=== PATIENT | male | born 1940 | race Caucasian/White ===

== ENCOUNTER 2023-10-19 11:54 | Inpatient (IN) | payer MEDICARE, OTHER, SELFPAY ==
[2023-10-19] VITALS (27 sets, daily range): BP systolic 133–187; BP diastolic 63–95; BMI 29.3
--- NOTE | 2023-10-19 06:33 | ED.GENMED ---
History of Present Illness
<Nancy Brooks MD, Resident - Last Filed: 10/19/23 08:07>
General
Chief Complaint: Abdominal Symptoms
Time Seen by Provider: 10/19/23 06:09
History of Present Illness
History of Present Illness:
The patient is a 83 year old male who presented to ER complaining from diarrhea. He reported that he has been complaining from flu-like symptoms since . He started to take benzonatate since then and has been still coughing. The patient
reported that he had diarrhea this morning suddenly around 04.30 am suddenly in his bed. He denies chest pain, abdominal pain and nausea. He endorses shortness of breath.
The patient denies contacting anyone with COVID.
If applicable-neuro sx onset
Date of onset of symptoms: 11/19/23
Past History
<Nancy Brooks MD, Resident - Last Filed: 10/19/23 08:07>
Past History
ED Past Medical History: HTN, Other (BPH ), Other (hemorrhoid) and Other (anemia due rectal bleeding in the past and was treated)
ED Past Surgical History: Tonsilectomy and Other (wisdom teeth )
Phy Exam
<Nancy Brooks MD, Resident - Last Filed: 10/19/23 08:07>
General Physical Exam
General Presentation: moderate distress
General age: appears stated age
General Skin: dry
General Habitus: normal
General Mental: alert
General Hydration: dry mucous membranes
Eye Exam
Eye Exam: EOMI
Cardiovascular Exam
Cardiovascular Exam: regular rate/rhythm, no edema and no JVD
Pulmonary Exam
Cough: non productive cough
Breath Sounds: Crackles: left lower and right lower
Gastrointestinal Exam
Gastrointestinal Exam: soft, non distended and tender
Palpation: left upper quadrant: Minimal tenderness (no rebound, no guarding )
Neurological Exam
Neurological Exam: alert, oriented x3, CN II-XII intact and no motor deficits
Course
<Nancy Brooks MD, Resident - Last Filed: 10/19/23 08:07>
Orders/Labs/Results
Orders:
Orders
10/19/23 06:30
0.9% Sodium Chloride 500 ml [Nss] 500 ml IV BOLUS
CR Chest - 2 Views Urgent
Comment:
Reason For Exam: cough
10/19/23 06:37
Electrocardiogram (*1) Urgent
Reason for Study: Shortness of Breath
EKG- Treatment ONCE
10/19/23 06:39
Basic Metabolic Panel Urgent
COVID-19 Antigen Urgent
Source: Nasal Swab
Complete Blood Count/With Diff Urgent
10/19/23 07:19
Ipratropium/Albuterol Sulfate [Duoneb] 3 ml .ROUTE .[facility]-MED ONE
10/19/23 07:23
Ipratropium/Albuterol Sulfate [Duoneb] 3 ml INH R NOW ONE
10/19/23 07:30
Azithromycin 500 mg/250 ml [Zithromax Infusion] 500 mg in 250 ml IV NOW
CefTRIAXone [Rocephin] 1,000 mg IV NOW STA
10/19/23 07:37
CT Chest Pe Study Urgent
Comment:
Reason For Exam: hypoxia, tachypnea
Abnormal Lab Results
10/19/23
06:39
MPV 10.5 H fL
(7.4-10.4)
Absolute Neuts (auto) 7.3 H 10^3/uL
(1.4-6.5)
Absolute Lymphs (auto) 1.1 L 10^3/uL
(1.2-3.4)
Absolute Monos (auto) 1.3 H 10^3/uL
(0.1-0.6)
Lymphocytes % 11.1 L %
(20.5-51.1)
Monocytes % 13.6 H %
(1.7-9.3)
Sodium 128 L mmol/L
(135-145)
Chloride 95 L mmol/L
(98-107)
Glucose 130 H mg/dl
(70-99)
10/19/23 06:39
10/19/23 06:39
Vital Signs
Initial and Last Documented VS:
Initial Vital Signs
Temp Pulse Resp BP Pulse Ox
37.2 C 75 20 161/70 98
10/19/23 05:34 10/19/23 05:34 10/19/23 05:34 10/19/23 05:34 10/19/23 05:34
Last Documented Vital Signs
Temp Pulse Resp BP Pulse Ox
37.2 C 71 21 142/70 96
10/19/23 05:34 10/19/23 09:30 10/19/23 09:30 10/19/23 09:15 10/19/23 09:30
<Ki Parker MD - Last Filed: 10/19/23 09:51>
Orders/Labs/Results
Orders:
Orders
10/19/23 06:30
0.9% Sodium Chloride 500 ml [Nss] 500 ml IV BOLUS
CR Chest - 2 Views Urgent
Comment:
Reason For Exam: cough
10/19/23 06:37
Electrocardiogram (*1) Urgent
Reason for Study: Shortness of Breath
EKG- Treatment ONCE
10/19/23 06:39
Basic Metabolic Panel Urgent
COVID-19 Antigen Urgent
Source: Nasal Swab
Complete Blood Count/With Diff Urgent
10/19/23 07:19
Ipratropium/Albuterol Sulfate [Duoneb] 3 ml .ROUTE .[facility]-MED ONE
10/19/23 07:23
Ipratropium/Albuterol Sulfate [Duoneb] 3 ml INH R NOW ONE
10/19/23 07:30
Azithromycin 500 mg/250 ml [Zithromax Infusion] 500 mg in 250 ml IV NOW
CefTRIAXone [Rocephin] 1,000 mg IV NOW STA
10/19/23 07:37
CT Chest Pe Study Urgent
Comment:
Reason For Exam: hypoxia, tachypnea
Abnormal Lab Results
10/19/23
06:39
MPV 10.5 H fL
(7.4-10.4)
Absolute Neuts (auto) 7.3 H 10^3/uL
(1.4-6.5)
Absolute Lymphs (auto) 1.1 L 10^3/uL
(1.2-3.4)
Absolute Monos (auto) 1.3 H 10^3/uL
(0.1-0.6)
Lymphocytes % 11.1 L %
(20.5-51.1)
Monocytes % 13.6 H %
(1.7-9.3)
Sodium 128 L mmol/L
(135-145)
Chloride 95 L mmol/L
(98-107)
Glucose 130 H mg/dl
(70-99)
10/19/23 06:39
10/19/23 06:39
Vital Signs
Initial and Last Documented VS:
Initial Vital Signs
Temp Pulse Resp BP Pulse Ox
37.2 C 75 20 161/70 98
10/19/23 05:34 10/19/23 05:34 10/19/23 05:34 10/19/23 05:34 10/19/23 05:34
Last Documented Vital Signs
Temp Pulse Resp BP Pulse Ox
37.2 C 71 21 142/70 96
10/19/23 05:34 10/19/23 09:30 10/19/23 09:30 10/19/23 09:15 10/19/23 09:30
<Ki Parker MD - Last Filed: 10/19/23 09:51>
*Radiology
Radiology exam reviewed: preliminary read by ED provider and radiology read reviewed
*Pulse Oximetry
Patient hypoxic: yes
*EKG
Interpreted by ED Provider?: Yes
Heart Rate: 72
Rate: normal
Rhythm: a-fib
[place]: normal axis
Interval: normal interval
QRS Pattern: normal QRS
Ischemia: other (Septal infarct age undetermined)
*Critical Care Note
Total Time (30-74mins, 75-104mins- exclusive of procedures): 33
comment:
Critical care statement: A total of 33 minutes of critical care time was provided for this patient. This includes management of unstable vital signs, evaluation of the patient at bedside, frequent reassessment, discussion with
consultants/hospitalist, and review of pertinent medical records. This time was separate from time utilized to perform any aforementioned documented procedures
Data Reviewed
Source: patient, records and spouse
<Nancy Brooks MD, Resident - Last Filed: 10/19/23 08:07>
Comment
Comment:
Pneumonia, heart failure, pulmonary embolism, inflammatory lung conditions,gastroenteritis, ,systemic infection?
ED Attending Note
<Nancy Brooks MD, Resident - Last Filed: 10/19/23 08:07>
-
Portions of this chart may have been created with voice recognition software.� Occasional wrong word or��sound alike� substitutions may have occurred due to the inherent limitations of voice recognition software.
<Ki Parker MD - Last Filed: 10/19/23 09:51>
ED Attending Note
Patient seen and examined by attending physician: Yes
ED Attending Note:
I have seen and evaluated the patient with a [id number] encounter. I have spoken to the resident and involved in the medical history, the physical exam, medical decision making.
Evaluation and management service: agree unless noted differently below.
Results interpretation: agree unless noted differently below.
Focused HPI: 83-year-old male with past medical history of hypertension and BPH who presents to the emergency department with his for evaluation of cough and shortness of breath. Patient reports that he has been dealing with a productive cough
for the past 3 days. He had been following with his PCP who was treating for viral infection; patient was being treated symptomatically with benzonatate and Mucinex. Over the weekend however patient has had increasing generalized weakness and
has noticed that he is not as 'sharp' as usual. This morning patient very weak could not get out of bed and had some incontinence of stool and went to the bathroom and was coughing and had an episode of vomiting. Brought to the emergency room for
assessment. Patient denies any chest pain. He has had fevers ranging from 100�101 degrees Fahrenheit per . No swelling or pain in the legs.
Physical exam: Awake alert oriented x 3. Hypoxic to 81% on room air currently on 6 L nasal cannula at 87 to 88%; he has tachypnea with respiratory rate in the mid 20s. He is mildly hypertensive. Heart rate 60s to 70s. He is afebrile here. He
has no cardiac rubs gallops or murmurs. Irregular rhythm. He has no edema in his extremities. Abdomen nontender. He has Rales most pronounced at the right lung base.
Medical Decision Makin-year-old male presents with cough and shortness of breath, increasing fatigue; today had some diarrhea and vomiting. Symptoms progressing over 3 days. On arrival his pulse ox was actually 98% on room air but had a
rather abrupt decrease during short time in the ER down to 81% on room air requiring 6 L nasal cannula to maintain a saturation of 87 to 88%; respiratory therapist contacted to place patient on high flow nasal cannula. He had a negative COVID in
triage. He had CBC and CMP in triage which showed no leukocytosis, CMP shows mild hyponatremia to 128 with a glucose of 130. EKG shows new onset A-fib heart rate in the 70s. Chest x-ray reviewed by me likely right perihilar pneumonia but given
hypoxia that seems to be out of proportion to findings on chest x-ray will send for a CTA of the chest to rule out PE/pulmonary infarct. Patient will require admission for acute respiratory failure with hypoxia pending initial workup. Will cover
with antibiotics for community-acquired pneumonia based on history and chest x-ray findings.
CTA negative for PE, positive for multifocal pneumonia which fits with clinical picture. Patient stable on high flow nasal cannula with acceptable oxygenation. Vitals have been stable. Covered for community-acquired pneumonia. Case discussed
with hospitalist for admission.
Discharge Plan
Departure
Patient Disposition: Admit
Date of Disposition: 10/19/23
Time of Disposition: 09:51
Admit to doctor: Juliette
Presentation/result/management discussed w/ accepting MD/DO: Hospitalist
Discharge Problem:
Acute hypoxemic respiratory failure, Pneumonia
Prescriptions:
No Action
benzonatate 200 mg Capsule
200 mg PO BID PRN (Reason: cough)
amlodipine 10 mg Tablet
10 mg PO DAILY
hydrochlorothiazide 25 mg Tablet
25 mg PO DAILY
Mucinex DM 30-600 mg Tablet Extended Release 12 Hr
1 tab PO Q12H PRN (Reason: cough)
multivitamin Capsule
1 cap PO DAILY
Referrals:
Raheem Lewis MD [Family Provider] -
Interventions
Interventions:
*Risk Screen - Suicide Last Done: 10/19/23 05:34
*General Assessment Last Done: 10/19/23 05:34
*Neglect/Abuse Screening Last Done: 10/19/23 05:34
ED- Fall Risk Assessment Last Done: 10/19/23 05:34
*ED COVID-19 Vaccine History Last Done: 10/19/23 05:34
RT-Lslbfb-Skjefqscdh Assessment Last Done: 10/19/23 07:15
ED- Pulmonary Assessment Last Done: 10/19/23 09:30
Discharge Date and Time
Print Language: CYMRO
[2023-10-19] MEDS: NSS 500 IV (06:44)
[2023-10-19 07:01] LABS: % Basophils 0.4 % (0-2); % Eosinophils 0.4 % (0-6); % Immature Granulocytes 0.4 % (0-0.5); % Lymphocytes 11.1 % (20.5-51.1); % Monocytes 13.6 % (1.7-9.3); % Neutrophils 74.1 % (42.2-75.2); Absolute Lymphocytes 1.1 10^3/uL (1.2-3.4); Absolute Monocytes 1.3 10^3/uL (0.1-0.6); Absolute Neutrophils 7.3 10^3/uL (1.4-6.5); Hematocrit 48.7 % (39.0-52.0); Hemoglobin 17.7 g/dL (13.0-18.0); Mean Corp Hgb Conc. 36.3 g/dL (33.0-37.0); Mean Corpuscular Volume 85.3 fL (80.0-94.0); Mean Platelet Volume 10.5 fL (7.4-10.4); Nucleated Red Blood Cells % 0 % (-); Platelet Count 187 10^3/uL (130-400); Red Blood Cell Count 5.71 10^6/uL (4.70-6.10); Red Cell Dist. Width 14.3 % (11.5-14.5); White Blood Cell Count 9.8 10^3/uL (4.8-10.8)
[2023-10-19 07:16] LABS: COVID-19 Antigen Negative (Negative)
[2023-10-19 07:21] LABS: Blood Urea Nitrogen 19 mg/dl (9-20); Calcium 9.5 mg/dl (8.4-10.2); Carbon Dioxide 22 mmol/L (22-30); Chloride 95 mmol/L (98-107); Estimated Creatinine Clearance 69 ml/min; Glucose 130 mg/dl (70-99); Sodium 128 mmol/L (135-145); eGFR > 60.00
[2023-10-19] MEDS: DUONEB 3 ML INH (07:24)
--- NOTE | 2023-10-19 07:30 | EDRN ---
Received patient on stretcher. Patient with c/o nausea upon return to room from X-ray. Patient with audible rattling sound. Respirations are tachypneic and labored. Pulse ox on room air 81-83%. Placed on O2 6LNC. notified. Placed on
monitor which showed Afib. Patient denies h/o Afib. Patient receiving Duoneb treatment. Lungs with scattered crackles throughout bilaterally.
[2023-10-19] MEDS: ROCEPHIN 1000 MG IV (07:53)
[2023-10-19] MEDS: ZITHROMAX INFUSION 250 IV (08:05)
[2023-10-19] MEDS: NORVASC 10 MG PO (12:24)
[2023-10-19] MEDS: ORETIC 25 MG PO (12:25)
--- NOTE | 2023-10-19 12:46 | HPS.HSE ---
Addendum entered and electronically signed by Keagan Bright MD 10/19/23 14:12:
I saw and examined the patient.
The [employer] or PA's note was reviewed and I agree with the note.
Comment: 83-year-old male with past medical history of hypertension, BPH now presents for fever, cough, diarrhea. Patient had possible viral URI as diagnosed by outside physician, cough nonproductive. Patient symptoms became worse with diarrhea
this morning, productive yellow mucus expectoration, not associated shortness of breath. Noted to have temperature of 102.5 Fahrenheit. Noted to be hypoxic to 82% on room air, placed on 15 L with appropriate response. Otherwise hypertensive,
respiratory rate 24, pulse 74, afebrile here. Notable labs include sodium 128, SARS-CoV-[address] imaging with evidence of left lower lobe consolidation, groundglass opacities, indicative of multifocal pneumonia. Also notable nodular
consolidation that we will need follow-up.
Plan�wean O2 as tolerated, incentive spirometer, Acapella, ceftriaxone, azithromycin, follow sputum cultures, Legionella, strep pneumo antigen, mycoplasma. Also noted to have atrial fibrillation, started on Eliquis and consult cardiology.
Hyponatremia possible secondary to possible SIADH in setting of pneumonia versus hypovolemia. Hold hydrochlorothiazide, continue fluids, monitor sodium level. Can continue amlodipine as hypertensive.. Can stop amlodipine if blood pressures trend
down.
Original Note:
Family Physician
-
Family Physician: Raheem Lewis
Chief Complaint
-
Fever, Cough and Diarrhea
History of Present Illness
Patient is an 83 y/o male past medical history of hypertension and BPH who presents with fever, cough and diarrhea. Patient reports he started feeling well about 3-4 days ago. He notes cough that was initially non-productive, but is now productive
of yellow mucus. He admits to associated shortness of breath. He reports associated fever as high as 102.5 F. Last night developed significant diarrhea which prompted him to come to the emergency department for evaluation. Upon arrival he was
found to be hypoxic with pulse ox of 82% and he was placed on 15L of supplemental oxygen.
Medical History
Past Medical History
Past Medical History: Reports Other
Additional Past Medical History:
Essential Hypertension
BPH
Past Surgical History: Reports None
Social History
Tobacco: Non-smoker
Alcohol: Occasional (One beer with dinner most nights)
Family History
Family History: Not pertinent
Allergies / Home Medications
Allergies reflects when Allergies were last updated in [employer].
Home Medications with original date entered in [employer]
Allergy/Medication List:
Allergies
Allergy/AdvReac Type Severity Reaction Status Date / Time
codeine Allergy Unknown Verified 10/19/23 05:34
Sulfa (Sulfonamide Allergy Unknown Verified 10/19/23 05:34
Antibiotics)
Home Medications
Homocysteine 1 tab PO DAILY 10/19/23
Estuardo Sporebiotic 2 tab PO DAILY 10/19/23
Pro [place]-D 2 tab PO DAILY 10/19/23
amlodipine 10 mg tablet 10 mg PO DAILY 10/19/23
benzonatate 200 mg capsule 200 mg PO BIDPRN PRN cough 10/19/23
dextromethorphan-guaifenesin 30 mg-600 mg tablet extended [id number] hr (Mucinex DM) 1 tab PO Q12H PRN cough 10/19/23
hydrochlorothiazide 25 mg tablet 25 mg PO DAILY 10/19/23
omeprazole 20 mg capsule,delayed release 20 mg PO DAILYPRN PRN stomach issues 10/19/23
tadalafil 10 mg tablet 10 mg PO DAILY 10/19/23
vitamin D3-vitamin K2 1 tab PO DAILY 10/19/23
Review of Systems
-
A 12 point ROS was completed and negative except as noted: Yes
Constitutional: Reports Fever
Respiratory: Reports Cough and Trouble Breathing
Cardiac: Denies Chest Pain or Palpitations
Abdomen/GI: Reports Nausea and Diarrhea; Denies Abdominal Pain
Physical Exam
Vital Signs
Vital Signs
Temp Pulse Resp BP Pulse Ox
98.9 F 73 18 158/95 94
10/19/23 05:34 10/19/23 12:25 10/19/23 11:45 10/19/23 12:25 10/19/23 11:45
Physical Exam
General: Comfortable and Conversant
HEENT: Anicteric, Moist mucous membranes and Oxygen
Respiratory: Rales (Left middle and lower regions), Non Labored Respirations and Decreased Breath Sounds (Right base)
Cardiac: S1/S2 and Irregular Rhythm; No Tachycardia
GI: Soft and Non Tender
Rectal: Deferred by Provider
Musculoskeletal: No Clubbing, No Cyanosis and No Edema
Skin: Warm and Dry
Neuro: Awake, Alert, Oriented and Nonfocal/grossly intact
Psych: Calm
Laboratory Results
-
10/19/23 06:39
10/19/23 06:39
Laboratory Results
Total Bilirubin Cancelled 10/19/23 06:39
AST Cancelled 10/19/23 06:39
ALT Cancelled 10/19/23 06:39
Alkaline Phosphatase Cancelled 10/19/23 06:39
Chest X-Ray:
Left greater than right patchy bibasilar airspace opacities, suspicious for infectious etiology.
Chest CT:
No evidence of pulmonary embolism.
Left lower lobe consolidation with surrounding groundglass opacities. There is are additional ground glass opacities within the right lower lobe. Findings are consistent with multifocal pneumonia. There is bilateral hilar and mediastinal
lymphadenopathy which may be reactive.
There is a 1.9 x 1.5 cm nodular consolidation within the posterior right lower lobe with surrounding groundglass opacities. Findings may be related to multifocal infection although malignancy cannot be excluded. Recommend follow-up CT to ensure
resolution.
ECG:
Atrial Fibrillation at 72 bpm
Data Reviewed
-
Diagnostic Radiology: Report Reviewed by me
CT Scan: Report Reviewed by me
Lab Data: Labs Reviewed by me
Impression/Plan
-
Acute Hypoxic Respiratory Failure secondary to Multi-Focal Pneumonia
-Continue supplemental oxygen
-Continue ceftriaxone and azithromycin
-Check sputum culture, legionella and strep antigen
Atrial Fibrillation, new diagnosis - Rate is currently controlled
-Consult Cardiology
-Start Eliquis for anticoagulation
Hyponatremia
-Hold HCTZ
-Recheck sodium in AM
Essential Hypertension
-Continue amlodipine
BPH
-Continue tadalafil
DVT proph: Eliquis
Code Status: Full Code
--- NOTE | 2023-10-19 13:18 | EDRN ---
Patient taken to room 3349 on stretcher on monitor with O2 15L NC in place.
--- NOTE | 2023-10-19 14:00 | PTCARENOTE ---
Patient received from the ER. Patient was pulled over to room bed. DEMETRIO JAIN. No complaints of pain at this time. Lab work ordered and collected would could be obtained at this time. Patient currently having loose stool, will attempt to obtain a
sample. Admission done, at bedside. Oriented to room. Call mahoney in reach.
[2023-10-19 14:15] LABS: Lactic Acid 2.6 mmol/L (0.7-2.0)
[2023-10-19 14:16] LABS: Magnesium 1.6 mg/dl (1.6-2.3)
[2023-10-19] MEDS: LR 1000 IV (14:34)
[2023-10-19] MEDS: MAGNESIUM SULFATE 100 IV (15:50)
[2023-10-19] MEDS: ELIQUIS 5 MG PO (19:45)
[2023-10-19] MEDS: TESSALON PERLES 200 MG PO (19:45)
[2023-10-19 22:10] LABS: Lactic Acid 1.8 mmol/L (0.7-2.0)
[2023-10-20] VITALS (16 sets, daily range): BP systolic 124–175; BP diastolic 67–88; PULSE 70–81; O2SAT 98
--- NOTE | 2023-10-20 02:20 | PTCARENOTE ---
assumed care of patient, pt is AAOx3- able to make needs known. pt still with diarrhea, using BSC, pt has been up and down and few times using BSC. no complaints of pain. on 10L MF- 94%. BP's have been trending on higher side, notified covering
[employer]ING, awaiting orders. pt with productive cough, admits to poor appetite. some wheezes noted to auscultation. a-fib on the monitor. pt due for first dose of eliquis. verbalized 'I am not sure how much i believe of all this' in regards to new
diagnosis of a-fib and starting on eliquis. education provided to patient. care ongoing.
[2023-10-20 05:04] LABS: Hemoglobin 17.2 g/dL (13.0-18.0); Mean Corp Hgb Conc. 36.6 g/dL (33.0-37.0); Mean Corpuscular Hgb 31.1 pg (27.0-31.0); Mean Platelet Volume 11.2 fL (7.4-10.4); Platelet Count 219 10^3/uL (130-400); Red Blood Cell Count 5.53 10^6/uL (4.70-6.10); White Blood Cell Count 8.2 10^3/uL (4.8-10.8)
[2023-10-20 05:26] LABS: ALT (SGPT) 51 U/L (0-50); AST (SGOT) 53 U/L (17-59); Albumin 3.6 g/dl (3.5-5.0); Alkaline Phosphatase 65 U/L (38-126); Blood Urea Nitrogen 17 mg/dl (9-20); Calcium 9.6 mg/dl (8.4-10.2); Carbon Dioxide 24 mmol/L (22-30); Chloride 95 mmol/L (98-107); Estimated Creatinine Clearance 77 ml/min; Glucose 128 mg/dl (70-99); Potassium 3.7 mmol/L (3.5-5.1); Sodium 127 mmol/L (135-145); Total Bilirubin 1.4 mg/dl (0.2-1.3); Total Protein 6.2 g/dl (6.3-8.2); eGFR > 60.00
[2023-10-20] MEDS: TESSALON PERLES 200 MG PO (05:49)
[2023-10-20] MEDS: ROCEPHIN 1000 MG IV (08:23)
[2023-10-20] MEDS: NORVASC 10 MG PO (08:24)
[2023-10-20] MEDS: STERILE WATER FOR INJECTION 10 ML IV (08:24)
[2023-10-20] MEDS: TESSALON PERLES PO (08:24)
[2023-10-20] MEDS: ELIQUIS 5 MG PO ×2 (08:24→19:36)
[2023-10-20] MEDS: ZITHROMAX INFUSION 250 IV (08:25)
[2023-10-20] MEDS: FLUSH (NSS) 2 FLUSH IV (08:25)
--- NOTE | 2023-10-20 09:04 | W.PN.HOSP.TC ---
Today's Communication/Plan
-
Wean oxygen
fluid restriction
Cardiology consult
Assessment / Plan
Assessment / Plan
Gen-AAOx3, NAD
HEENT-NC, AT, anicteric, clear oral mm
Neck-supple
CV-reg, no M, +S1/S2
Lungs-clear B/L
Abd-soft, NT, ND
Ext-no edema
Musculoskeletal-no cyanosis, clubbing
Skin-warm and dry
Neuro-grossly non-focal
Psych-calm, cooperative
Acute hypoxic respiratory failure -due to multifocal pneumonia. Oxygenation improving, now on 6 L. Wean down as able.
Multifocal community-acquired pneumonia -unclear if atypical versus typical bacterial pneumonia. CT chest shows left lower lobe consolidation with surrounding groundglass glass opacities, additional groundglass opacities in the right lower lobe.
Bilateral hilar and mediastinal lymphadenopathy. 1.9 x 1.5 cm nodular consolidation within the posterior right lower lobe with surrounding ground glass opacities.
Continue current antibiotics. Urinary antigens negative. Mycoplasma serology pending. Will need outpatient pulmonary follow-up after discharge.
Continue Acapella, incentive spirometry.
Atrial fibrillation -new diagnosis. Started on Eliquis. Cardiology consulted.
Hyponatremia -suspect ADH related to pneumonia. HCTZ discontinued. Fluid restriction. Monitor sodium. Spoke with patient about permanently stopping HCTZ on discharge. Check TSH, serum osmolarity, urine studies.
Essential hypertension
BPH
Obesity due to excess calories
Full code
Anticipated Discharge: 24 - 48 hours
Subjective/Interval History
-
Date of Service: October 20, 2023
Patient seen and examined. Denies shortness of breath. Still with loose stools.
Objective Data
-
Labs:
Laboratory Results
10/20/23
04:51
WBC 8.2
Hgb 17.2
Hct 47.0
Plt Count 219
Sodium 127 L
Potassium 3.7
Chloride 95 L
Carbon Dioxide 24
BUN 17
Creatinine 0.9
Glucose 128 H
Calcium 9.6
Total Bilirubin 1.4 H
AST 53
ALT 51 H
Alkaline Phosphatase 65
Vital Signs:
Vital Signs
Temp Pulse Resp BP Pulse Ox
98.4 F 70 19 157/81 92
10/20/23 07:00 10/20/23 06:00 10/20/23 06:00 10/20/23 06:00 10/20/23 06:00
I&O
10/19/23 10/20/23 10/21/23
06:59 06:59 06:59
Output Total 100 / 100
Balance -100 / -100
Review of Systems
-
History Source: Patient
All other systems: Reviewed and negative
--- NOTE | 2023-10-20 09:06 | CON.CAR ---
Addendum entered and electronically signed by Octavio Pagan MD 10/20/23 12:44:
I personally performed a history and physical exam of the patient and discussed management with the resident. I reviewed the resident's note and agree with the documented findings and plan of care HPI/CC.
General: Well developed, well nourished in NAD.
Neck: Supple, no JVD, HJR, carotids +2 B/L, no bruits bilaterally.
Heart: Non displaced PMI, Irreg, no murmurs, No S3, S4, no rubs.
Lungs: Crackles at the right base
Abdomen: Normal bowel sounds, soft, non-tender, non-distended.
Extremities: No clubbing, cyanosis or edema bilaterally.
Neuro: Grossly nonfocal, awake, alert and oriented x3.
Nimesh has a history of hypertension. He presented with fever cough and diarrhea. He was diagnosed with pneumonia. He is also found to be in A-fib and cardiology was consulted. He feels better but remains on 6 L of oxygen. Of note A-fib has been
rate controlled. He has been started on Eliquis
Duration of a atrial fibrillation is unclear. He notes that he had an ECG about 6 months ago that was okay. Rate is controlled off of medications. Will discontinue Norvasc and add Toprol. Eliquis has already been added. We could consider
eventual RAMIRO/cardioversion or cardioversion alone as an outpatient after 4 weeks of anticoagulation. He remains hypoxic. Will check proBNP for possible CHF. Check echocardiogram
Original Note:
Consultation
Consultation Request
Date/Time Consultation Requested: 10/20/2023
Date/Time Consultation Performed: 10/20/2023
Requesting Provider: Temitope Cavazos
Performing Provider:
Reason for Consultation: Dr. Pagan
Medical History
-
Chief Complaint: New onset A-fib
History of Present Illness:
This is a 83-year-old male patient with PMH hypertension that presented to the ED with fever, productive cough and diarrhea. He was diagnosed by an outside physician with possible viral URI and was given 15L O2 due to being hypoxemic at 82% on room
air on admission. He is currently afebrile and on 6L of O2 with 92% oxygen saturation. He is also on IV antibiotics for multifocal pneumonia. He states that he had an EKG done at his PCP's office but was told it was 'okay and nothing to worry
about'. He denies any chest pain, SOB, sweating, dizziness.
Past Medical History
Past Medical History: HTN and Other (BPH)
Past Surgical History: None
Social History
Tobacco: Non-Smoker
Alcohol: None (1 beer most nights with dinner)
Family History
Family History: Reviewed & Not Pertinent
Allergies / Home Medications
Allergy/AdvReac Type Severity Reaction Status Date / Time
codeine Allergy Unknown Verified 10/19/23 05:34
Sulfa (Sulfonamide Allergy Unknown Verified 10/19/23 05:34
Antibiotics)
�Medication �Instructions �Recorded �Confirmed �Type
Homocysteine 1 tab PO DAILY 10/19/23 10/19/23 History
Estuardo Sporebiotic 2 tab PO DAILY 10/19/23 10/19/23 History
Pro [place] 2 tab PO DAILY 10/19/23 10/19/23 History
amlodipine 10 mg tablet 10 mg PO DAILY 10/19/23 10/19/23 History
benzonatate 200 mg capsule 200 mg PO BIDPRN PRN cough 10/19/23 10/19/23 History
dextromethorphan-guaifenesin 30 1 tab PO Q12H PRN cough 10/19/23 10/19/23 History
mg-600 mg tablet extended
[id number] hr (Mucinex DM)
hydrochlorothiazide 25 mg tablet 25 mg PO DAILY 10/19/23 10/19/23 History
omeprazole 20 mg capsule,delayed 20 mg PO DAILYPRN PRN stomach 10/19/23 10/19/23 History
release issues
tadalafil 10 mg tablet 10 mg PO DAILY 10/19/23 10/19/23 History
vitamin D3-vitamin K2 1 tab PO DAILY 10/19/23 10/19/23 History
Review of Systems
-
Constitutional: No Symptoms
Cardiac: No Symptoms
Abdomen/GI: Diarrhea
Physical Exam
Vital Signs
Temp Pulse Resp BP Pulse Ox
98.4 F 70 19 157/81 92
10/20/23 07:00 10/20/23 06:00 10/20/23 06:00 10/20/23 06:00 10/20/23 06:00
Lab Results
10/20/23 04:51
10/20/23 04:51
Physical Exam
General: No Apparent Distress
HEENT: Moist Mucous Membranes
Respiratory: Clear
Cardiac: S1/S2 and Regular Rhythm; Negative Murmur
GI: Soft, Non Tender and Non Distended
Musculoskeletal: No Edema
Skin: Warm
Neuro: Awake, Alert and Oriented
Psych: Calm
Impression / Plan
-
Impression: This is a 83-year-old male patient with PMH hypertension that presented to the ED with fever, productive cough and diarrhea. New onset A-fib with EKG showing atrial fibrillation noted on 10/19/23. Asymptomatic. Eliquis was initiated and
cardiology consulted.
Assessment:
New onset A-fib
Acute hypoxemic respiratory failure secondary to multifocal pneumonia
Hyponatremia
BPH
Hypertension
Plan:
� EKG 10/19/2023: Atrial fibrillation
� Eliquis initiated on 10/18, [id number] score 3, continue anticoagulation
� Echo ordered
- Depending on echo, may change to Metoprolol from Amlodipine
- BNP ordered
� Continue HTN meds
[2023-10-20] MEDS: FLUSH (NSS) IV (10:44)
[2023-10-20] MEDS: LR 1000 IV (11:53)
[2023-10-20] MEDS: NON-FORMULARY ITEM 10 MG PO (11:53)
[2023-10-20 12:48] LABS: Osmolality Serum 267 mOsm/kg (275-300)
[2023-10-20 12:57] LABS: Direct Bilirubin 0.3 mg/dl (0.0-0.4)
[2023-10-20 13:29] LABS: TSH 3.56 uIU/ml (0.47-4.68)
[2023-10-20] MEDS: TOPROL XL 25 MG PO (14:08)
[2023-10-20 15:04] LABS: Urine Sodium 12 mmol/L (30-90)
--- NOTE | 2023-10-20 15:13 | CM ---
Patient with Dx Acute hypoxic respiratory failure, pneumonia. O2 6L. Receiving IVF, IV Abx. PT Eval; recommend home PT vs no needs. OT Eval; likely no needs.
Met with patient who resides with his in a 2 story house with first floor bedroom/bath.
The patient has been independent in ADLs and ambulation.
The patient has no DME, prior VN or SNF.
PCP - Raheem Lewis
Pharmacy - [facility]
Offered VN for SN/PT and patient declined saying he will not need that at home.
Plan watch for home O2 needs.
Plan home.
[2023-10-20 17:45] LABS: Osmolality Urine 311 mOsm/kg (300-900)
--- NOTE | 2023-10-20 18:19 | PTCARENOTE ---
Weaning o2 currently on RAIR maintaining sao2 93%. Occasional cough, sputum specimen sent. Pt self using IS/ Flutter. Remains in AF, rates 60-90s. BP 150s/80s. AFIB packet provided. 1 episode of nausea / small amt emesis today - resolved on
own. 3 small amts of loose stool- relayed to Dr. Case. Urine specimen sent as well. IVF infusing. Limited diet today appetite fair- only had a little yogurt/ trying some soup for dinner. Tolerating fluids.
--- NOTE | 2023-10-20 20:05 | PTCARENOTE ---
Received pt OOB to the chair. Pt AAOx3, denies pain. SpO2 93% on RA. Afib on the monitor, controlled rate of 85. Remainder of assessment as documented. PM hygiene performed by pt. Pt updated on POC for the night, no questions at this time, call mahoney
within reach, pt resting comfortably watching the news.
[2023-10-21] VITALS (11 sets, daily range): BP systolic 123–149; BP diastolic 69–101
[2023-10-21 05:45] LABS: Blood Urea Nitrogen 15 mg/dl (9-20); Carbon Dioxide 26 mmol/L (22-30); Chloride 95 mmol/L (98-107); Estimated Creatinine Clearance 87 ml/min; Glucose 121 mg/dl (70-99); Potassium 3.8 mmol/L (3.5-5.1); Sodium 128 mmol/L (135-145); eGFR > 60.00
[2023-10-21 05:50] LABS: NT-proBNP 689 pg/ml
[2023-10-21 05:55] LABS: Calcium 9.8 mg/dl (8.4-10.2)
[2023-10-21] MEDS: ROCEPHIN 1000 MG IV (07:59)
[2023-10-21] MEDS: STERILE WATER FOR INJECTION 10 ML IV (07:59)
[2023-10-21] MEDS: ZITHROMAX INFUSION 250 IV (07:59)
[2023-10-21] MEDS: LR IV (08:00)
[2023-10-21] MEDS: TOPROL XL 25 MG PO (08:00)
[2023-10-21] MEDS: FLUSH (NSS) IV ×2 (08:01→08:45)
[2023-10-21] MEDS: ELIQUIS 5 MG PO (08:01)
[2023-10-21] MEDS: NON-FORMULARY ITEM 10 MG PO (08:02)
--- NOTE | 2023-10-21 08:05 | W.PN.HOSP.TC ---
Addendum entered and electronically signed by Kev Case DO 10/21/23 14:23:
Oxygen saturation on room air normal with ambulation. Medically stable for discharge.
I spoke with patient's on the phone regarding importance of following up with pulmonary after discharge especially in light of his lung nodule noted on CT scan. Need to rule out malignancy.
I also asked Dr. Madrigal from the pulmonary group to follow-up with patient for appointment in the near future.
Original Note:
Today's Communication/Plan
-
Ambulatory pulse ox on room air
Discharge
Assessment / Plan
Assessment / Plan
Gen-AAOx3, NAD
HEENT-NC, AT, anicteric, clear oral mm
Neck-supple
CV-reg, no M, +S1/S2
Lungs-clear B/L
Abd-soft, NT, ND
Ext-no edema
Musculoskeletal-no cyanosis, clubbing
Skin-warm and dry
Neuro-grossly non-focal
Psych-calm, cooperative
Acute hypoxic respiratory failure -due to multifocal pneumonia. Oxygenation improved, has been on room air since last night. Check ambulatory pulse ox on room air.
Multifocal community-acquired pneumonia -unclear if atypical versus typical bacterial pneumonia. CT chest shows left lower lobe consolidation with surrounding groundglass glass opacities, additional groundglass opacities in the right lower lobe.
Bilateral hilar and mediastinal lymphadenopathy. 1.9 x 1.5 cm nodular consolidation within the posterior right lower lobe with surrounding ground glass opacities.
Continue current antibiotics. Urinary antigens negative. Mycoplasma serology pending. Will need outpatient pulmonary follow-up after discharge, discussed with patient. He does have a home in [place] and spends several months a year in [place].
We discussed potential pathogens located in that region. Given clinical improvement on antimicrobial therapy will hold off on further testing.
Continue Acapella, incentive spirometry.
Atrial fibrillation -new diagnosis. Continue Eliquis, Toprol-XL. Echocardiogram shows LVEF 55 to 60%, no regional wall motion abnormalities. Mild MR. Mild aortic stenosis. Mild TR. BNP 689.
Follow-up with cardiology after discharge.
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 HCTZ discontinued. Fluid restriction. Monitor sodium. Spoke with patient about permanently stopping HCTZ on discharge. TSH normal.
Patient will need a BMP checked at the end of the week, results to his primary care doctor.
Essential hypertension -stable.
BPH
Obesity due to excess calories
Full code
Dispo -anticipate discharge home this afternoon. Outpatient follow-up with his PCP, cardiology, pulmonary.
32 minutes spent in discharge process.
Anticipated Discharge: Today
Subjective/Interval History
-
Date of Service: October 21, 2023
Patient seen and examined. Overall feeling better. Still with a cough. Denies shortness of breath.
Objective Data
-
Labs:
Laboratory Results
10/21/23
05:04
Sodium 128 L
Potassium 3.8
Chloride 95 L
Carbon Dioxide 26
BUN 15
Creatinine 0.8
Glucose 121 H
Calcium 9.8
Vital Signs:
Vital Signs
Temp Pulse Resp BP Pulse Ox
98.3 F 62 18 126/69 94
10/21/23 03:01 10/21/23 06:00 10/21/23 06:00 10/21/23 06:26 10/21/23 04:00
I&O
10/20/23 10/21/23 10/22/23
06:59 06:59 06:59
Intake Total 2034
Output Total 100 / 100 1075 / 1075
Balance -100 / -100 960 / 960
Review of Systems
-
History Source: Patient
All other systems: Reviewed and negative
--- NOTE | 2023-10-21 08:18 | W.DS.TRANS ---
DC Summary - Topstitcher Lockstitch
-
Discharge Instructions:
Discharge Diagnosis/Procedures Community-acquired pneumonia, atrial
fibrillation, hyponatremia
Diet Restrict fluids to 48 oz,Low Fat,Low Cholesterol
Activity As tolerated
Driving Restrictions As prior to admission
Bathing Restrictions None
Blood Work BMP on October 23
Instructions:
Stand-Alone Forms:
Changes to Home Medications: Yes
Discharge Medications:
DC Medications w/original date entered in [facility]
benzonatate 200 mg capsule 200 mg PO BIDPRN PRN cough 10/19/23
dextromethorphan-guaifenesin 30 mg-600 mg tablet extended [id number] hr (Mucinex DM) 1 tab PO Q12H PRN cough 10/19/23
omeprazole 20 mg capsule,delayed release 20 mg PO DAILYPRN PRN stomach issues 10/19/23
tadalafil 10 mg tablet 10 mg PO DAILY Urinary Issue 10/19/23
apixaban 5 mg tablet (Eliquis) 5 mg PO BID #60 tabs 10/21/23
azithromycin 500 mg tablet 500 mg PO DAILY #3 tabs 10/21/23
cefpodoxime 200 mg tablet 200 mg PO BID #6 tabs 10/21/23
metoprolol succinate 25 mg tablet,extended release 24 hr 25 mg PO DAILY #30 tabs 10/21/23
Home Medication Changes
Stop amlodipine
Stop hydrochlorothiazide
Pending Results: No
--- NOTE | 2023-10-21 11:18 | CM ---
Home O2 Assessment noted. PT Eval; recommend home PT vs no needs. OT Eval; likely no needs.
Met with patient who was preparing for d/c. The patient says he feels ready for d/c today. His will provide transport home today.
As per prior CM notes. patient declined VN.
CM Consult: Check Eliquis 5mg BID cost
Per [facility], cost is $93.59.
Patient understand cost can vary each month under Medicare. He is ok with the cost---> Dr Case & Caridad Mason notified.
Eliquis Free Month card provided.
Plan home today.
--- NOTE | 2023-10-21 11:18 | W.PN.CARDCBS ---
Today's Communication / Plan
-
Stable cardiology status for discharge and rate controlled A-fib on Eliquis and Toprol
Impression / Plan
-
Impression: This is a 83-year-old male patient with PMH hypertension that presented to the ED with fever, productive cough and diarrhea. New onset A-fib with EKG showing atrial fibrillation noted on 10/19/23. Asymptomatic. Eliquis was initiated and
cardiology consulted.
Assessment:
New onset A-fib
Acute hypoxemic respiratory failure secondary to multifocal pneumonia
Mild aortic stenosis 10/20/2023
Hyponatremia
BPH
Hypertension
Echocardiogram 10/20/2023: Ejection fraction 55 to 60%, mild aortic stenosis with mean gradient of 16 mmHg
Plan:
He is off of oxygen and feels well
He remains in rate controlled atrial fibrillation
Continue Toprol and Eliquis
Case management to assess cost of Eliquis
Stable cardiology status for discharge
Patient is going to [place] in November 2023. When seen in office we will consider RAMIRO/cardioversion if remains in A-fib
Will need follow-up for mild aortic stenosis as well
Discussed with primary service
Progress Note - Crimper Operator
Subjective
Date of Service: October 21, 2023
No complaints
Objective
Labs:
10/20/23 04:51
10/21/23 05:04
Labs
Hgb 17.2 g/dL (13.0-18.0) 10/20/23 04:51
Hct 47.0 % (39.0-52.0) 10/20/23 04:51
Plt Count 219 10^3/uL (130-400) 10/20/23 04:51
Sodium 128 mmol/L (135-145) L 10/21/23 05:04
Potassium 3.8 mmol/L (3.5-5.1) 10/21/23 05:04
BUN 15 mg/dl (9-20) 10/21/23 05:04
Creatinine 0.8 mg/dL (0.7-1.3) 10/21/23 05:04
Glucose 121 mg/dl (70-99) H 10/21/23 05:04
Vital Signs and I&O:
Vital Signs
Temp Pulse Resp BP Pulse Ox
97.7 F 62 18 126/69 94
10/21/23 07:10 10/21/23 06:00 10/21/23 06:00 10/21/23 06:26 10/21/23 04:00
Vital Signs
Temp Pulse Resp BP Pulse Ox
97.7 F 62 18 126/69 94
10/21/23 07:10 10/21/23 06:00 10/21/23 06:00 10/21/23 06:26 10/21/23 04:00
Intake & Output
10/19/23 10/20/23 10/21/23 10/22/23
06:59 06:59 06:59 06:59
Intake Total 2034 / 2034
Output Total 100 / 100 1075 / 1075
Balance -100 / -100 960 / 960
Physical Exam
Physical Exam
General: Well developed, well nourished in NAD.
Neck: Supple, no JVD, HJR, carotids +2 B/L, no bruits bilaterally.
Heart: Non displaced PMI, irregular, no murmurs, No S3, S4, no rubs.
Lungs: Few crackles at the bases
Extremities: No clubbing, cyanosis or edema bilaterally.
Neuro: Grossly nonfocal, awake, alert and oriented x3.
--- NOTE | 2023-10-21 14:05 | PTCARENOTE ---
Notified cardiology re pt with heart rate in 50s and occasionally dips into 40s for brief second. with ambulation heart rate in 70s and no c/o. pts bp149/[address] Canchola made aware. pt discharged home. instructions and prescriptions
given and pt left via wheelchair.
[2023-10-22 00:09] LABS: Mycoplasma pneumoniae IgG 0.06 U/L (<=0.09); Mycoplasma pneumoniae-IgM 0.13 U/L (<=0.76)
== END 2023-10-21 13:29 | disposition home or self-care (01) | DRG 193 ==
LOC: IMU 11:54
PROVIDERS: Physician Assistant Medical; Student in an Organized Health Care Education/Training Program; ADMITTING PHYSICIAN Internal Medicine; ATTENDING PHYSICIAN Hospitalist; EMERGENCY PHYSICIAN Emergency Medicine; FAMILY PHYSICIAN Family Medicine; OTHER PHYSICIAN Internal Medicine Cardiovascular Disease
DX: J18.9 Pneumonia, unspecified organism (principal); J96.01 Acute respiratory failure with hypoxia; E87.1 Hypo-osmolality and hyponatremia; I48.91 Unspecified atrial fibrillation; I10 Essential (primary) hypertension; Z11.52 Encounter for screening for COVID-19
CPT/HCPCS: 71046; 71275; 80048; 80053; 82248; 83605; 83735; 83880; 83930; 83935; 84132; 84300; 84443; 85025; 85027; 86738; 87040; 87081; 87449; 87502; 87811; 87899; 93005; 93306; 94640; 96361; 96365; 96375; 97163; 97166; 99291; Q9967

== ENCOUNTER → 2023-10-24 07:33 | Outpatient (REF) | payer MEDICARE, OTHER, SELFPAY ==
[2023-10-24 09:13] LABS: Blood Urea Nitrogen 12 mg/dl (9-20); Calcium 9.8 mg/dl (8.4-10.2); Carbon Dioxide 29 mmol/L (22-30); Chloride 98 mmol/L (98-107); Glucose 111 mg/dl (70-99); Potassium 4.5 mmol/L (3.5-5.1); Sodium 132 mmol/L (135-145); eGFR > 60.00
== END ==
LOC: REG 07:33
PROVIDERS: ATTENDING PHYSICIAN Hospitalist; FAMILY PHYSICIAN Family Medicine
DX: R19.7 Diarrhea, unspecified (principal)
CPT/HCPCS: 36415; 80048

== ENCOUNTER → 2023-11-05 11:36 | Outpatient (REF) | payer MEDICARE, OTHER, SELFPAY | LOC: RAD 11:36 | PROVIDERS: ATTENDING PHYSICIAN Internal Medicine Critical Care Medicine; FAMILY PHYSICIAN Family Medicine | DX: R91.1 Solitary pulmonary nodule (principal) | CPT/HCPCS: 71250 ==

== ENCOUNTER 2023-11-10 06:20 | Day surgery (SDC) | payer MEDICARE, OTHER, SELFPAY ==
[2023-11-06 11:09] LABS: INR 1.16; PT 14.9 Sec (11.4-14.6)
[2023-11-06 11:10] LABS: APTT 34.6 Sec (23.4-35.0)
[2023-11-10 10:45] VITALS: BMI 28.7
[2023-11-10 11:01] VITALS: BMI 28.7
[2023-11-10 11:02] VITALS: BP 195/96
[2023-11-10 14:02] VITALS: BP 128/65; BP 195/96
[2023-11-10 14:09] VITALS: BP 128/65
[2023-11-10 14:15] VITALS: BP 134/70
[2023-11-10 14:35] VITALS: BP 122/59
[2023-11-10 15:05] VITALS: BP 146/66
== END 2023-11-10 15:20 | disposition home or self-care (01) ==
LOC: SDS 06:20
PROVIDERS: ATTENDING PHYSICIAN Internal Medicine Critical Care Medicine; FAMILY PHYSICIAN Family Medicine
DX: R91.1 Solitary pulmonary nodule (principal)
CPT/HCPCS: 31653; 31627; 31624; 31623; 31654; 31645; 88173; 88305; 36415; 71045; 76000; 85610; 85730; 87015; 87070; 87102; 87116; 87205; 88112; 94640; C1887

== ENCOUNTER 2023-11-13 10:24 | Inpatient (IN) | payer MEDICARE, OTHER, SELFPAY ==
[2023-11-13] VITALS (13 sets, daily range): BP systolic 114–209; BP diastolic 67–113; BMI 28.5; BMI 28.6
[2023-11-13 08:17] LABS: % Basophils 0.4 % (0-2); % Eosinophils 1.7 % (0-6); % Immature Granulocytes 0.4 % (0-0.5); % Lymphocytes 19.5 % (20.5-51.1); % Monocytes 7.9 % (1.7-9.3); % Neutrophils 70.1 % (42.2-75.2); Absolute Eosinophils 0.1 10^3/uL (0-0.7); Absolute Lymphocytes 1.5 10^3/uL (1.2-3.4); Absolute Monocytes 0.6 10^3/uL (0.1-0.6); Absolute Neutrophils 5.2 10^3/uL (1.4-6.5); Hematocrit 43.1 % (39.0-52.0); Mean Corp Hgb Conc. 34.8 g/dL (33.0-37.0); Mean Corpuscular Hgb 32.4 pg (27.0-31.0); Mean Corpuscular Volume 93.1 fL (80.0-94.0); Mean Platelet Volume 11.2 fL (7.4-10.4); Nucleated Red Blood Cells % 0 % (-); Platelet Count 198 10^3/uL (130-400); Red Blood Cell Count 4.63 10^6/uL (4.70-6.10); Red Cell Dist. Width 15.3 % (11.5-14.5); White Blood Cell Count 7.4 10^3/uL (4.8-10.8)
[2023-11-13 08:21] LABS: Urine Albumin Trace (Neg - Trace); Urine Bilirubin Negative (Negative); Urine Character Clear (Clear); Urine Color Yellow; Urine Glucose Negative (Negative); Urine Ketone Negative (Negative); Urine Leukocyte Negative (Negative); Urine Nitrite Negative (Negative); Urine Occult Blood 3+ (Negative); Urine Urobilinogen Negative (Neg - 1+)
[2023-11-13 08:28] LABS: Urine Bacteria Few (Negative); Urine Red Blood Cell 21-25 /HPF (0-2); Urine Squamous Cell 0-2 /LPF (Few); Urine White Cell 0-2 /HPF (0-5)
--- NOTE | 2023-11-13 08:31 | ED.GENMED ---
History of Present Illness
General
Chief Complaint: Urinary Symptoms
Source: patient
Exam Limitations: none
Time Seen by Provider: 11/13/23 08:04
Nursing documentation reviewed up to this point in time: agreed with
History of Present Illness
History of Present Illness:
83-year-old male past medical history of recently diagnosed A-fib currently on Eliquis over the past few weeks history of GI bleeds hypertension presenting to the emergency department today with concerns of inability urinate starting early this
morning for multiple hours has had worsening discomfort to the suprapubic region secondary to this. Denies any chest pain shortness of breath or fevers.
Past History
Past History
ED Past Medical History: HTN, Other (BPH ), Other (hemorrhoid) and Other (anemia due rectal bleeding in the past and was treated)
ED Past Surgical History: Tonsilectomy and Other (wisdom teeth )
Review of Systems
Review of Systems
Allergies reviewed?: Yes
All Other Systems: ROS reviewed and negative except as documented in HPI and ROS
Phy Exam
Physical Exam
Physical Exam:
GENERAL: Alert , in no apparent distress
EYE: pupils equal and reactive
NECK: Supple, no significant adenopathy.
ENT: o/p clr, mmm.
CARDIAC: Regular rate and rhythm .
LUNGS: Clear breath sounds bilaterally, no acute respiratory distress, no wheezes/rales/rhonchi
ABDOMEN: Thibodeaux in place no abdominal tenderness soft, without focal tenderness, no r/g, no cvat
Rectal: Black stool guaiac positive
NEUROLOGICAL: Alert and oriented, no focal neuro deficits
SKIN: Warm and dry, skin intact.
MUSCULOSKELETAL: No edema, well perfused.
PSYCH: Normal and appropriate interaction.
Course
Orders/Labs/Results
Orders:
Orders
11/13/23 08:06
Complete Blood Count/With Diff Urgent
Comprehensive Metabolic Panel Urgent
Urinalysis Reflex To Culture Urgent
Date Specimen was Collected: 11/13/23
Time Specimen was Collected: 07:14
Urine Microscopic Reflex Cult Urgent
11/13/23 08:28
Type+Screen Urgent
Thibodeaux Placement- Treatment ONCE
Reason for insertion: Acute Retention
Pantoprazole [Protonix IV] 80 mg IV NOW STA
Abnormal Lab Results
11/13/23
08:06
RBC 4.63 L 10^6/uL
(4.70-6.10)
MCH 32.4 H pg
(27.0-31.0)
RDW 15.3 H %
(11.5-14.5)
MPV 11.2 H fL
(7.4-10.4)
Lymphocytes % 19.5 L %
(20.5-51.1)
BUN 32 H mg/dl
(9-20)
Glucose 130 H mg/dl
(70-99)
Ur Occult Blood Reflex 3+ A
(Negative)
Urine RBC 21-25 A /HPF
(0-2)
Urine Bacteria (Reflex) Few A
(Negative)
11/13/23 08:06
11/13/23 08:06
Vital Signs
Initial and Last Documented VS:
Initial Vital Signs
Temp Pulse Resp BP Pulse Ox
97.9 F 86 18 209/113 96
11/13/23 07:11 11/13/23 07:11 11/13/23 07:11 11/13/23 07:11 11/13/23 07:11
Last Documented Vital Signs
Temp Pulse Resp BP Pulse Ox
97.9 F 59 18 167/68 95
11/13/23 07:11 11/13/23 08:00 11/13/23 08:00 11/13/23 08:00 11/13/23 08:00
MDM/Problems Addressed
MDM/Problems Addressed:
83-year-old male presenting to the emergency department today with concerns of inability urinate for multiple hours prior to arrival increasing discomfort to the suprapubic region. Patient had a Thibodeaux placed with complete resolution of symptoms.
He also did mention that his stool has been very dark over the past few days was recently started on Eliquis. Rectal examination revealed black stool guaiac positive. Concern the patient is on Eliquis his hemoglobin did drop to hemoglobin plan to
admit for monitoring and GI consultation. GI was directly contacted while he was in the ER.
*Critical Care Note
Total Time (30-74mins, 75-104mins- exclusive of procedures): Not Applicable
ED Attending Note
-
Portions of this chart may have been created with voice recognition software.� Occasional wrong word or��sound alike� substitutions may have occurred due to the inherent limitations of voice recognition software.
Discharge Plan
Departure
Patient Disposition: Admit
Date of Disposition: 11/13/23
Time of Disposition: 09:31
Admit to: Med/Surg
Admit to doctor: Manoj
Presentation/result/management discussed w/ accepting MD/DO: Hospitalist
Patient with high blood pressure during this ER visit?: No
Condition: Good
Covid-19: Not Applicable
Discharge Problem:
Acute GI bleeding, Acute urinary retention
Prescriptions:
No Action
benzonatate 200 mg Capsule
200 mg PO PRN PRN (Reason: cough)
omeprazole 20 mg capsule,delayed release(DR/EC)
20 mg PO DAILYPRN PRN (Reason: stomach issues)
tadalafil 10 mg tablet
10 mg PO DAILY
Eliquis 5 mg Tablet
5 mg PO BID Qty: 60 0RF
metoprolol succinate 25 mg tablet extended release 24 hr
25 mg PO QPM
fluticasone propionate [Flonase] 50 mcg/actuation [place],Suspension
1 spray INTRANASAL DAILY
Fish Oil
1 cap PO DAILY
Homocysteine Formula
1 tab PO DAILY
Pro [place]
1 dose PO DAILY
cholecalciferol (vitamin D3) [Vitamin D3] 125 mcg (5,000 unit) Tablet
125 mcg PO DAILY
Referrals:
Raheem Lewis MD [Family Provider] -
Interventions
Interventions:
*Risk Screen - Suicide Last Done: 11/13/23 09:20
*General Assessment Last Done: 11/13/23 09:20
*Neglect/Abuse Screening Last Done: 11/13/23 09:20
ED- Fall Risk Assessment Last Done: 11/13/23 09:20
*ED COVID-19 Vaccine History Last Done: 11/13/23 09:20
ED-Male Genitourinary Assessment Last Done: 11/13/23 08:28
Discharge Date and Time
Print Language: DANISH
[2023-11-13 08:35] LABS: ALT (SGPT) 39 U/L (0-50); AST (SGOT) 29 U/L (17-59); Albumin 4.1 g/dl (3.5-5.0); Alkaline Phosphatase 54 U/L (38-126); Blood Urea Nitrogen 32 mg/dl (9-20); Calcium 9.8 mg/dl (8.4-10.2); Carbon Dioxide 26 mmol/L (22-30); Chloride 105 mmol/L (98-107); Glucose 130 mg/dl (70-99); Potassium 4.2 mmol/L (3.5-5.1); Sodium 142 mmol/L (135-145); Total Bilirubin 1.2 mg/dl (0.2-1.3); Total Protein 6.4 g/dl (6.3-8.2); eGFR > 60.00
[2023-11-13] MEDS: PROTONIX IV 80 MG IV (09:13)
--- NOTE | 2023-11-13 10:02 | HPS.HSE ---
Family Physician
-
Family Physician: Raheem Lewis
Chief Complaint
-
urinary retention and black stools
History of Present Illness
Patient 83 years old male with history of A-fib, hypertension, BPH, anemia, recent pneumonia, lung nodule status post recent bronchoscopy, presented to the hospital urinary retention. Patient had trouble urinating prior to coming into the hospital
and he had evidence of urinary retention in the ER and a Thibodeaux catheter was placed. Denies any hematuria. Denies fevers or chills. Patient also endorsed some dark stools over the last few days while he has been on anticoagulation especially about
a week ago and then intermittently on and off since then. He denies dysphagia, dyne aphasia, nausea vomiting abdominal pain diarrhea constipation. He said he took last dose of Eliquis last evening. He denies hematemesis, bright blood per rectum,
or hematochezia. In the ER, hemoglobin 15 and baseline hemoglobin on 10/19 was 17.2. Requested repeat hemoglobin at the time of my evaluation. He has been given IV Protonix. He was referred to hospitalist for further evaluation.
Medical History
Past Medical History
Past Medical History: Reports Other
Additional Past Medical History:
Essential Hypertension
BPH
Paroxysmal atrial fibrillation
Anemia
Colon polyps
Hemorrhoid
Cecal ectasia
Diverticulosis
Pneumonia
Past Surgical History: Reports Other (Tonsillectomy, wisdom teeth extraction)
Social History
Tobacco: Non-smoker
Alcohol: None (One beer with dinner most nights)
Drug: None
Family History
Family History: Not pertinent
Allergies / Home Medications
Allergies reflects when Allergies were last updated in [employer].
Home Medications with original date entered in [employer]
Allergy/Medication List:
Allergies
Allergy/AdvReac Type Severity Reaction Status Date / Time
codeine Allergy hallucinati Verified 11/13/23 07:13
ons,malaise
Sulfa (Sulfonamide Allergy hallucinati Verified 11/13/23 07:13
Antibiotics) ons,malaise
Home Medications
benzonatate 200 mg capsule 200 mg PO BIDPRN PRN cough 10/19/23
omeprazole 20 mg capsule,delayed release 20 mg PO DAILYPRN PRN stomach issues 10/19/23
tadalafil 10 mg tablet 10 mg PO DAILY Urinary Issue 10/19/23
apixaban 5 mg tablet (Eliquis) 5 mg PO BID #60 tabs 10/21/23
cholecalciferol (vitamin D3) 125 mcg (5,000 unit) tablet (Vitamin D3) 125 mcg PO DAILY 11/06/23
fluticasone propionate 50 mcg/actuation nasal spray,suspension 1 spray intranasal DAILY 11/06/23
metoprolol succinate 25 mg tablet,extended release 24 hr 25 mg PO QPM 11/06/23
omega 7-pfz-hdh-fish oil 1,000 mg (120 mg-180 mg) capsule (Fish Oil) 1 cap PO DAILY 11/06/23
aspirin 500 mg tablet 500 mg PO BIDPRN PRN mild pain 11/13/23
Review of Systems
-
A 12 point ROS was completed and negative except as noted: Yes
Physical Exam
Vital Signs
Vital Signs
Temp Pulse Resp BP Pulse Ox
97.9 F 59 18 167/68 95
11/13/23 07:11 11/13/23 08:00 11/13/23 08:00 11/13/23 08:00 11/13/23 08:00
Physical exam:
General: Acutely ill. Nontoxic
HEENT: Normocephalic, Atraumatic and Moist Mucous Membranes
Respiratory: Clear to Auscultation; Negative Wheezes, Rales or Rhonchi
Cardiac: Irregular rate and rhythm, and S1/S2
GI: Soft, Nontender and Nondistended
Musculoskeletal: No Clubbing, No Cyanosis and No Edema
Neuro: Awake, Alert and Oriented
Psych: Calm
Physical Exam
General: Other
Laboratory Results
-
11/13/23 08:06
11/13/23 08:06
Laboratory Results
Total Bilirubin 1.2 mg/dl (0.2-1.3) 11/13/23 08:06
AST 29 U/L (17-59) 11/13/23 08:06
ALT 39 U/L (0-50) 11/13/23 08:06
Alkaline Phosphatase 54 U/L (38-126) 11/13/23 08:06
Data Reviewed
-
Lab Data: Labs Reviewed by me
Impression/Plan
-
IMPRESSION:
Patient 83 years old male history of hypertension, recently diagnosed with A-fib, came into the hospital with urinary retention, concerns for GI bleed. Patient will need to be monitored in the hospital and managed accordingly given acute
presentation and multiple comorbidities and increased risk of morbidity mortality.
PLAN:
Urinary retention:
Continue Thibodeaux catheter
Urology consult-discussed with urology
Consider start Flomax (patient on tadalafil outpatient)
Concerns for GI bleed:
Clear liquid diet
IV fluid
Monitor hemoglobin
IV PPI
GI consult-Brantley texted GI today
Might need endoscopy but defer to GI
Hold anticoagulation until cleared by GI
Anemia:
Continue to monitor hemoglobin closely
Paroxysmal atrial fibrillation:
Apparently he was supposed to get cardioversion outpatient but he is not sure about details.
Rate control with beta-blockers
Hold off on anticoagulation due to reasons as above
Will get cardiology on board-Brantley texted cardiology today
Cardiac monitoring
Lung nodules:
Status post recent bronchoscopy pending results outpatient.
Hypertension:
Continue home antihypertensives.
Monitor blood pressure and adjust medications accordingly.
IV hydralazine as needed
DVT prophylaxis-SCDs
CODE STATUS-full code
Time spent 75 minutes
--- NOTE | 2023-11-13 11:41 | CON.GI ---
Addendum entered and electronically signed by Gracie Kaur Do, MD 11/13/23 16:25:
I saw and examined the patient.
The FUEL CELL DESIGNER's note was reviewed and I agree with the note.
Comment: Nimesh is an 83yo M with h/o GIB from cecal ectasias in past, HTN and afib on eliquis who presents for urinary retention. He was admitted 10/18-10/20 for PNA with lung lesion and had bronchoscopy with bx 11/10/23. He noted to have dark stools
for the past 2 days. There is reflux but denies abd pain nausea/vomiting. He believes that he took some pepto but cannot recollect when. Vitals reviewed. Labs Hbg 15 to 13. He's had several EGD/colon and capsule last 2021 see below
Impression
- Dark stools
ddx includes pepto intake vs ulcer or ectasia
- Afib on eliquis
Unclear last dose
- Lung lesion
s/p broch 11/09
- Urinary retention
- HTN
- Remote h/o GIB from cecal ectasia
- Forgetfulness
- BPH
Recommendations
- PPI IV BID
- Trend H/H and large bore IVs
- Hold anticoagulation for now
- Appreciate cardiology recommendations
- CLD now, NPO at GA in case GI procedure may need to be done tomorrow. Will reassess in the AM
Will follow with you
Original Note:
Consultation
-
Date/Time Consultation Requested: 11/13/23 1000
Date/Time Consultation Performed: 11/13/23 1130
Requesting Provider: Jaime Baron MD
Performing Provider: ROLAN Gordon, Gracie Liu MD
Reason for Consultation: black stools
Medical History
Chief Complaint / HPI
Chief Complaint: black stools difficulty urinating
History of Present Illness:
Pt is a 83yo with HTN, BPH, hemorrhoids, anemia, colon polyps, hemorrhoids, cecal ectasia, and diverticulosis He was admitted to 10/18 til 10/20 with PNA, hypoxemia and new onset of afib with start of Eliquis. He was treated with antibiotics
and returned 11/09 for bronch and evaluation of lung lesion with adenopathy with brushings with some bx pending. He presents to ER with difficulty urinating and also noted black stools with possible recent pepto. On admission hbg 15 with last hbg
on 10/19 17.2. He has hx anemia with hbg down to 8.9 in 2019 with work up with stable EGD, colon with hemorrhoids, polyp, diverticulosis and capsule possible cecal ectasia. He had repeat colon in 2021 with polyps, diverticulosis and treatment of
cecal ectasia as bled with contact. He now presents with urinary issues and noted with black stool on admission. He reports black stools 1 week ago then no stools with bronch and NPO and now black in ER.
Pt currently odynophagia, dysphagia, GERD, nausea, vomiting, abdominal pain, diarrhea, constipation, or rectal bleeding. No NSAID use.
Past Medical History
Past Medical History: Arrhythmias (new afib), HTN and Other (BPH, hemorrhoids, anemia, colon polyps, hemorrhoids, cecal ectasia, diverticulosis )
Past Surgical History: Tonsilectomy and Other (wisdom teeth )
Social History
Tobacco: Non-Smoker
Alcohol: None
Drug: None
Personal:
Living: With Family
Employment: Retired
Family History
Family History: Other (no family hx colon CA or polyps)
Allergies / Home Medications
Allergy/AdvReac Type Severity Reaction Status Date / Time
codeine Allergy hallucinati Verified 11/13/23 07:13
ons,malaise
Sulfa (Sulfonamide Allergy hallucinati Verified 11/13/23 07:13
Antibiotics) ons,malaise
�Medication �Instructions �Recorded
benzonatate 200 mg capsule 200 mg PO BIDPRN PRN cough 10/19/23
omeprazole 20 mg capsule,delayed 20 mg PO DAILYPRN PRN stomach 10/19/23
release issues
tadalafil 10 mg tablet 10 mg PO DAILY Urinary Issue 10/19/23
apixaban 5 mg tablet (Eliquis) 5 mg PO BID #60 tabs 10/21/23
cholecalciferol (vitamin D3) 125 125 mcg PO DAILY 11/06/23
mcg (5,000 unit) tablet (Vitamin
D3)
fluticasone propionate 50 1 spray intranasal DAILY 11/06/23
mcg/actuation nasal
spray,suspension
metoprolol succinate 25 mg 25 mg PO QPM 11/06/23
tablet,extended release 24 hr
omega 9-apr-clo-fish oil 1,000 mg 1 cap PO DAILY 11/06/23
(120 mg-180 mg) capsule (Fish Oil)
aspirin 500 mg tablet 500 mg PO BIDPRN PRN mild pain 11/13/23
Review of Systems
-
Unable to obtain full review of systems at this time due to: Other (some forgetfulness in evaluation)
History Source: Patient
Constitutional: Reports No Symptoms
EENT: Reports No Symptoms
Respiratory: Reports No Symptoms
Abdomen/GI: Reports Black Stools
: Reports Difficulty Voiding (now with cantu)
Musculoskeletal: Reports No Symptoms
Skin: Reports No Symptoms
Neurological: Reports No Symptoms
Endocrine: Reports No Symptoms
Hematologic/Lymphatic: Reports Bleeding
Vital Signs
Temp Pulse Resp BP Pulse Ox
97.9 F 59 16 154/76 94
11/13/23 07:11 11/13/23 10:30 11/13/23 10:30 11/13/23 10:00 11/13/23 10:30
Physical Exam
Exam
General: Well Developed, Well Nourished and No Apparent Distress
HEENT: Normocephalic and Anicteric
Respiratory: Clear
Cardiac: Regular Rhythm
GI: Soft, Non Tender and Non Distended
Rectal: Black (heme + per ER)
Genito-urinary: Other (some small amount bleeding around cantu)
Musculoskeletal: No Clubbing and No Cyanosis
Skin: Warm and Dry
Neuro: Awake, Alert and AO x 3
Psych: Calm
Results
WBC 7.4 10^3/uL (4.8-10.8) 11/13/23 08:06
Hgb 15.0 g/dL (13.0-18.0) 11/13/23 08:06
Hct 43.1 % (39.0-52.0) 11/13/23 08:06
MCV 93.1 fL (80.0-94.0) 11/13/23 08:06
Plt Count 198 10^3/uL (130-400) 11/13/23 08:06
Absolute Neuts (auto) 5.2 10^3/uL (1.4-6.5) 11/13/23 08:06
Sodium 142 mmol/L (135-145) 11/13/23 08:06
Potassium 4.2 mmol/L (3.5-5.1) 11/13/23 08:06
Chloride 105 mmol/L (98-107) 11/13/23 08:06
Carbon Dioxide 26 mmol/L (22-30) 11/13/23 08:06
BUN 32 mg/dl (9-20) H 11/13/23 08:06
Creatinine 1.1 mg/dL (0.7-1.3) 11/13/23 08:06
Calcium 9.8 mg/dl (8.4-10.2) 11/13/23 08:06
Total Bilirubin 1.2 mg/dl (0.2-1.3) 11/13/23 08:06
AST 29 U/L (17-59) 11/13/23 08:06
ALT 39 U/L (0-50) 11/13/23 08:06
Alkaline Phosphatase 54 U/L (38-126) 11/13/23 08:06
Diagnostic Image Results:
Prior GI Procedures:
������ 12/11/21 COLON- 5mm DC adenoma. 3mm TC adenoma. Diverticulosis. Cecal ectasias bled on contact cauterized w APC, clipped x 2.
�������12/08/19 CAPSULE ENDO- Possible cecal ectasia
�������11/18/19 COLON ([facility])- Hemorrhoids. Nonadenomatous polyp. Diverticulosis
�������11/09/19 EGD ([facility])- Irregular z line bx neg HP. HH. Bx neg H pylori
�������11/26/17 COLON ([facility])- Two adenomas 2-3mm cecum, TC. Diverticulosis. Hemorrhoids
�������10/28/16 COLON ([facility])- Multiple adenomas 2-4mm cecum, AC x 2, TC, SC x 2. Hemorrhoids. Diverticulosis
Assessment / Plan
-
Pt is a 83yo with HTN, BPH, hemorrhoids, anemia, colon polyps, hemorrhoids, cecal ectasia, and diverticulosis He was admitted to 10/18 til 10/20 with PNA, hypoxemia and new onset of afib with start of Eliquis. He was treated with antibiotics
and returned 11/09 for bronch and evaluation of lung lesion with adenopathy with brushings with some bx pending. He presents to ER with difficulty urinating and also noted black stools with possible recent pepto. On admission hbg 15 with last hbg
on 10/19 17.2. He has hx anemia with hbg down to 8.9 in 2019 with work up with stable EGD, colon with hemorrhoids, polyp, diverticulosis and capsule possible cecal ectasia. He had repeat colon in 2021 with polyps, diverticulosis and treatment of
cecal ectasia as bled with contact. He now presents with urinary issues and noted with black stool on admission. He reports black stools 1 week ago then no stools with bronch and NPO and now black in ER. No NSAID use
-black stool
-normal hbg with some drop 17.2 -15
-difficulty urinating - s/p cantu placement
-recent admit with PNA/new onset afib with Eliquis added
-s/p bronch 11/09 bx pending
other medical problems:
-HTN
-BPH
-hemorrhoids
-anemia
-colon polyps
-hemorrhoids
-cecal ectasia
-diverticulosis
PLAN:
etiology of black stool related GI bleeding -(PUD, ectasia, vs other) with new Eliquis and rise in BUN, drop in hbg 17.2 to 15 vs pepto vs other
trend hbg and stools record
ok for clear diet
PPI BID
eliquis hold last dose 11/11
t/c EGD if continued black stools and drop in hbg
s/p urology evaluation
bronch bx pending
will follow
-
-
Thank you for consultation and allowing me to participate in the patient's care. Please call the hematology oncology consultant GI physician during the after hours with any questions or concerns.
--- NOTE | 2023-11-13 11:47 | W.PN.URO.CBU ---
Today's Communication / Plan
-
teach cantu leg bag care
Assessment / Plan
-
cantu for now start flomax voiding trial in near fture as outpatient unless inatient for other conditions
Diagnosis
-
Date of Service: November 13, 2023
-
Patient Diagnosis:acute [ost procedural urinary retention 1250cc drained
Post Op Day:
Subjective
-
relief of acute pain
Objective
-
Vital Signs
Temp Pulse Resp BP Pulse Ox
97.9 F 59 16 154/76 94
11/13/23 07:11 11/13/23 10:30 11/13/23 10:30 11/13/23 10:00 11/13/23 10:30
Intake and Output
11/12/23 11/13/23 11/14/23
06:59 06:59 06:59
Output Total 1250 / 1250
Balance -1250 / -1250
Output:
Urine, Cantu 1250 / 1250
Laboratory Results
11/13/23 08:06
Review of Systems
-
: Difficulty Voiding
Physical Exam
-
General - well developed, well nourished, no acute distress
Chest - clear bilaterally
Abdomen - soft, non-tender, positive bowel sounds, no CVAT, no incisional pain or distention
Genitalia - normal
Rectal - normal
Skin - warm & dry with no rash
Neuro - AOx3, no motor deficits
Extremities - no clubbing, no cyanosis, no edema
Incision - clean, dry
Dressing - clean, dry, intact
Care Review
Data Reviewed
Discussed with: Hospitalist
Ultrasound: Image Pers Reviewed
[2023-11-13] MEDS: NSS 1000 IV (12:41)
[2023-11-13 13:36] LABS: Hematocrit 39.7 % (39.0-52.0); Hemoglobin 13.9 g/dL (13.0-18.0)
--- NOTE | 2023-11-13 14:55 | CON.CAR ---
Addendum entered and electronically signed by Christelle Desai MD 11/13/23 16:57:
I saw and examined the patient.
The Service Tech's note was reviewed and I agree with the note.
Comment: Patient is a 83yo gentleman with HTN, BPH, recent admission with CAP and hypoxic resp failure with new onset Afib during that admission newly started on eliquis which was held on 11/04 with fine need biopsy of lung nodule on 11/09, since
then resumed with complains of urinary retention and melena x 1 week.
Vitals and labs reviewed. NAD, A+O x3, Normal S1 and S2, abd soft, NT, ND, warm extremities, lungs CTAB
Reccs:
1. Hold eliquis for now pending GI workup. [id number] of 3. No bridging indicated for now. Check ECG.
2. Cont to monitor on tele.
3. Rate control with BB.
4. Depending on GI input Hgb trend, discuss safety of OAC resumption eventually vs. Watchman as outpt once stable and can tolerate OAC short term.
Christelle Desai MD, [facility], [facility]
Original Note:
Consultation
Consultation Request
Date/Time Consultation Requested: 11/13/2023, 1000
Date/Time Consultation Performed: 11/13/2023 1500
Requesting Provider: Jaime Baron MD
Performing Provider: ROLAN Roman for Isabel Diego MD
Reason for Consultation: Recent A-fib on anticoagulation, now with concern for GI bleed
Medical History
-
Chief Complaint: Inability to urinate, black stool
History of Present Illness:
83-year-old male with history of hypertension, recent admission to 10/19/2023 to 10/21/2023 for acute hypoxic respiratory failure, community-acquired pneumonia, hyponatremia, and newly detected atrial fibrillation. He was seen by [facility] cardiology at
that time and started on Eliquis and metoprolol. An echocardiogram during that admission showed an EF of 55 to 60%, mild MR, mild . He was hyponatremic and hydrochlorothiazide was stopped. He had also been on amlodipine which was stopped. In
review of his records it appears he remained in rate controlled atrial fibrillation throughout his hospitalization and at the time of discharge.
A CT of the chest during the hospitalization showed a 1.9 x 1.5 cm nodular consolidation and he was advised to follow-up with pulmonary in the outpatient setting. He underwent a bronchoscopy on 11/10/2023 with fine-needle biospy. Results pending.
He held Eliquis for 5 days prior to the biopsy.
He presented to the ER today with chief complaint of difficulty urinating and also black stools. He first noticed black stool on 11/10/2023. He had not noticed it since then until today as he was n.p.o. for his procedure and had not had a bowel
movement.
ER eval 11/13/23: hemoglobin 15.0 on 11/13/23 0800, down from 17.2 on 10/20/2023. Subsequent Hgb at 1246 was 13.9.
He denies palpitations, shortness of breath, chest pain, lightheadedness, syncope, edema, PND, orthopnea.
Eliquis is currently on hold.
[id number] score (HTN, age)
Past medical history:
Hypertension
Atrial fibrillation, diagnosed 11/07, admission to
Hyponatremia
Acute hypoxic respiratory failure admission 10/20/2023
Community-acquired pneumonia 10/20/2023
BPH
Pulmonary nodule status post bronchoscopy 11/10/2023
Past Medical History
Past Medical History: Other (as above )
Past Surgical History: Tonsilectomy
Social History
Tobacco: Former Smoker (Quit 1973 had been heavy cigarette smoker for about 9 years, 20 to 39 cigarettes daily)
Alcohol: Occasional
Family History
Family History: Other (Parents and 3 sisters all from lung cancer)
Allergies / Home Medications
Allergy/AdvReac Type Severity Reaction Status Date / Time
codeine Allergy hallucinati Verified 11/13/23 07:13
ons,malaise
Sulfa (Sulfonamide Allergy hallucinati Verified 11/13/23 07:13
Antibiotics) ons,malaise
�Medication �Instructions �Recorded �Confirmed �Type
benzonatate 200 mg capsule 200 mg PO BIDPRN PRN cough 10/19/23 11/13/23 History
omeprazole 20 mg capsule,delayed 20 mg PO DAILYPRN PRN stomach 10/19/23 11/13/23 History
release issues
tadalafil 10 mg tablet 10 mg PO DAILY Urinary Issue 10/19/23 11/13/23 History
apixaban 5 mg tablet (Eliquis) 5 mg PO BID #60 tabs 10/21/23 11/13/23 Rx
cholecalciferol (vitamin D3) 125 125 mcg PO DAILY 11/06/23 11/13/23 History
mcg (5,000 unit) tablet (Vitamin
D3)
fluticasone propionate 50 1 spray intranasal DAILY 11/06/23 11/13/23 History
mcg/actuation nasal
spray,suspension
metoprolol succinate 25 mg 25 mg PO QPM 11/06/23 11/13/23 History
tablet,extended release 24 hr
omega 4-hgr-uzp-fish oil 1,000 mg 1 cap PO DAILY 11/06/23 11/13/23 History
(120 mg-180 mg) capsule (Fish Oil)
aspirin 500 mg tablet 500 mg PO BIDPRN PRN mild pain 11/13/23 11/13/23 History
Review of Systems
-
History Source: Patient and Family ()
All other systems: Negative unless noted
Physical Exam
Vital Signs
Temp Pulse Resp BP Pulse Ox
97.9 F 68 18 177/86 98
11/13/23 07:11 11/13/23 14:00 11/13/23 14:00 11/13/23 13:00 11/13/23 13:15
PE:
GEN: No distress, awake, Ox3,
HEENT: supple, anicteric, mmm
LUNGS: CTA, no wheezes/rales
CV: irreg, irreg, S1/S2, 2/6 TYREL LSB
ABD: soft, BS+, NT/ND
EXT: No edema
NEURO: Gross non-focal
SKIN: No rash
Lab Results
11/13/23 12:46
11/13/23 08:06
Physical Exam
General: Other (see above)
Impression / Plan
-
PCP: Raheem Lewis
Pest Controller: Octavio Pagan MD
Black stool
Drop in hemoglobin
Recent diagnosis atrial fibrillation 10/19/2023, started on Eliquis
Hypertension
Hyponatremia
BPH
Pulmonary nodule status post bronchoscopy 11/09, biopsy pending
Recent acute hypoxic respiratory failure admission 10/20/2023
Recent community-acquired pneumonia 10/20/2023
Cardiac diagnostic testing: Echocardiogram 10/20/23: Normal LV size and function, EF 55%, mild cLVH, mild MR, mild aortic stenosis, PA systolic pressure 34
Plan:
A-fib-he was recently diagnosed with atrial fibrillation with controlled ventricular response and was started on eliquis and metoprolol. [id number] score is 3. He saw in f/u in the office on 11/04/2023 and cardioversion was discussed
and advised, once he was on at least 3 weeks of uninterrupted anticoagulation. He did have to stop Eliquis for 5 days prior to the lung biopsy on 11/10/23. He is now having dark stools and drop in hemoglobin. Would hold Eliquis for now. Continue
metoprolol. He is asymptomatic with atrial fibrillation. Review of telemetry shows he remains in rate controlled A-fib. Check 12-lead EKG (I placed order) and admit to telemetry. We will follow.
Hypertension: Blood pressures have been elevated since admission, as high as 209/113 on initial presentation and now running in the 150s-170s/70s-80s. During his last admission hydrochlorothiazide and amlodipine were both stopped.
Hydrochlorothiazide was stopped due to hyponatremia. Consider resuming amlodipine if BPs remain elevated.
Hyponatremia: Sodium normal (142) on labs today 11/13/2023
Concern for GI bleed-
Patient was seen by GI with plan to trend hemoglobin and stools. Started on PPI and clears diet. To consider endoscopy if continued drop in hemoglobin and black stools
Pulmonary nodule-biopsy from 11/10/2023 pending.
BPH-Seen by urology and starting Flomax.
--- NOTE | 2023-11-13 16:54 | PTCARENOTE ---
Received pt from ER via stretcher, accompanied by ER staff. Pt AAO x3, WALTERS well, ambulatory to bed, no c/o weakness/dizziness. Placed on telemetry:Afib. VSS. On room air-pulse ox 98%, no SOB noted. Abd large, soft; to start clear liquid diet; pt
aware of NPO past midnight for ? EGD. Thibodeaux P/I clear yellow urine. IVF's NSS @ 75 ml/ infusing via Rt AC site without sx of infiltration. Oriented to 4East, currently resting in bed. Will continue to monitor.
[2023-11-13] MEDS: TOPROL XL 25 MG PO (17:55)
[2023-11-13] MEDS: NSS (PRESERVATIVE FREE) 10 ML IV (20:28)
[2023-11-13] MEDS: PROTONIX IV 40 MG IV (20:28)
[2023-11-14] VITALS (7 sets, daily range): BP systolic 139–175; BP diastolic 67–91
[2023-11-14] MEDS: NSS 1000 IV ×2 (02:44→14:02)
[2023-11-14 06:24] LABS: Hematocrit 38.3 % (39.0-52.0); Hemoglobin 13.2 g/dL (13.0-18.0); Mean Corp Hgb Conc. 34.5 g/dL (33.0-37.0); Mean Corpuscular Hgb 31.4 pg (27.0-31.0); Mean Corpuscular Volume 91.2 fL (80.0-94.0); Platelet Count 184 10^3/uL (130-400); Red Cell Dist. Width 15.5 % (11.5-14.5); White Blood Cell Count 8.3 10^3/uL (4.8-10.8)
[2023-11-14 06:59] LABS: Blood Urea Nitrogen 16 mg/dl (9-20); Calcium 9.3 mg/dl (8.4-10.2); Carbon Dioxide 25 mmol/L (22-30); Chloride 106 mmol/L (98-107); Estimated Creatinine Clearance 67 ml/min; Glucose 101 mg/dl (70-99); Sodium 141 mmol/L (135-145); eGFR > 60.00
[2023-11-14] MEDS: NSS (PRESERVATIVE FREE) 10 ML IV ×2 (08:58→21:38)
[2023-11-14] MEDS: PROTONIX IV 40 MG IV ×2 (08:58→21:38)
[2023-11-14] MEDS: VITAMIN D3 (cholecalciferol) 125 MCG PO (08:58)
--- NOTE | 2023-11-14 09:39 | W.PN.HOSP.TC ---
Today's Communication/Plan
-
EGD and colonoscopy. Monitor hemoglobin
Assessment / Plan
Assessment / Plan
Physical exam:
General: Well Developed, Well Nourished and No Apparent Distress
HEENT: Normocephalic, Atraumatic and Moist Mucous Membranes
Respiratory: Clear to Auscultation; Negative Wheezes, Rales or Rhonchi
Cardiac: Regular Rhythm and S1/S2
GI: Soft, Nontender and Nondistended
Musculoskeletal: No Clubbing, No Cyanosis and No Edema
Neuro: Awake, Alert and Oriented
Psych: Calm
A/P:
Urinary retention:
Continue Thibodeaux catheter
Urology consult-discussed with urology
Consider start Flomax (patient on tadalafil outpatient)
Concerns for GI bleed:
N.p.o. for procedure
IV fluid but can stop
Monitor hemoglobin
IV PPI
GI consult appreciated
Endoscopy and colonoscopy per GI today
Hold anticoagulation until cleared by GI
Anemia:
Continue to monitor hemoglobin closely
Paroxysmal atrial fibrillation:
Apparently he was supposed to get cardioversion outpatient but he is not sure about details.
Rate control with beta-blockers
Hold off on anticoagulation due to reasons as above
Will get cardiology on board-[place] texted cardiology today
Cardiac monitoring
Lung nodules:
Status post recent bronchoscopy pending results outpatient.
Hypertension:
Continue home antihypertensives.
Monitor blood pressure and adjust medications accordingly.
IV hydralazine as needed
DVT prophylaxis-SCDs
CODE STATUS-full code
Anticipated Discharge: 24 - 48 hours
Subjective/Interval History
-
Date of Service: November 14, 2023
Patient denies any chest pain or shortness of breath. Had bowel prep
Objective Data
-
Labs:
Laboratory Results
11/14/23
05:27
WBC 8.3
Hgb 13.2
Hct 38.3 L
Plt Count 184
Sodium 141
Potassium 4.0
Chloride 106
Carbon Dioxide 25
BUN 16
Creatinine 1.0
Glucose 101 H
Calcium 9.3
Vital Signs:
Vital Signs
Temp Pulse Resp BP Pulse Ox
98.3 F 64 18 165/91 98
11/14/23 07:00 11/14/23 07:00 11/14/23 07:00 11/14/23 07:00 11/14/23 07:00
I&O
11/13/23 11/14/23 11/15/23
06:59 06:59 06:59
Intake Total 1889 / 189
Output Total 3675 / 3675
Balance -1785 / -1785
[2023-11-14] MEDS: NULYTELY SOLUTION 4 LITERS PO (09:50)
--- NOTE | 2023-11-14 09:59 | W.PN.CARDCBS ---
Addendum entered and electronically signed by Reji Lindsay MD 11/14/23 16:13:
I saw and examined the patient.
The Seaman's note was reviewed and I agree with the note.
Comment: Briefly, 83-year-old man past medical history of atrial fibrillation on Eliquis presenting with dark stools and downtrending hemoglobin concerning for GI bleed
Ongoing workup of possible GI bleed, was tentatively planned for EGD and colonoscopy
Eliquis is on hold, would resume when safe from a GI standpoint
Patient is hesitant to resume Eliquis, ultimately may be a good candidate for Watchman
Original Note:
Today's Communication / Plan
-
for EGD, colonoscopy today
continue holding Eliquis
afib rate controlled
given previous h/o GI bleed, would be a good candidate for Watchman device, which can be discussed in outpatient setting
Impression / Plan
-
PCP: Raheem Lewis
Ground Systems Engineer: Octavio Pagan MD
Black stool
Drop in hemoglobin
Recent diagnosis atrial fibrillation 10/19/2023, started on Eliquis
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
Hypertension
Hyponatremia
BPH
acute urinary retention following bronchoscopy with general anesthesia 11/10/23
Pulmonary nodule status post bronchoscopy 11/09, biopsy pending
Recent acute hypoxic respiratory failure admission 10/20/2023
Recent community-acquired pneumonia 10/20/2023
Cardiac diagnostic testing: Echocardiogram 10/20/23: Normal LV size and function, EF 55%, mild cLVH, mild MR, mild aortic stenosis, PA systolic pressure 34
Plan:
A-fib-he was recently diagnosed with atrial fibrillation with controlled ventricular response and was started on eliquis and metoprolol. [id number] score is 3. He saw in f/u in the office on 11/04/2023 and cardioversion was discussed
and advised, once he was on at least 3 weeks of uninterrupted anticoagulation. He did have to stop Eliquis for 5 days prior to the lung biopsy on 11/10/23. He is now having dark stools and drop in hemoglobin and getting EGD/colonoscopy today. Cont
Eliquis hold. Continue metoprolol. He is asymptomatic with atrial fibrillation. Review of telemetry shows he remains in rate controlled A-fib. MCC, he would be candidate for Watchman device given recurrent h/o GI bleed.
Concern for GI bleed-getting UGI/colonoscopy today.
Patient was seen by GI with plan to trend hemoglobin and stools. Started on PPI.
BPH and acute urinary retention-Seen by urology-ok to start Flomax.
Hypertension: Blood pressures have been elevated since admission, as high as 209/113 on initial presentation and now running in the 160/80s. During his last admission hydrochlorothiazide and amlodipine were both stopped. Hydrochlorothiazide was
stopped due to hyponatremia. Pt will be starting Flomax for urinary retention/BPH which could lower BP. If BP remains elevated despite starting this, consider resuming amlodipine at 5 mg daily if BPs remain elevated.
Hyponatremia: Sodium normal (141) on labs today 11/14/2023
Pulmonary nodule-biopsy from 11/10/2023 pending.
Progress Note - Ground Systems Engineer
Subjective
Date of Service: November 14, 2023
going for EGD/colonoscopy today
Hgb continues to trend down, 13.2 today 11/14/23
still w/ black stool
pt tells me he had GI bleed in the past
denies CP/SOB/LH/dizziness/palps/edema, PND, orthopnea
Objective
Labs:
11/14/23 05:27
11/14/23 05:27
Labs
Hgb 13.2 g/dL (13.0-18.0) 11/14/23 05:27
Hct 38.3 % (39.0-52.0) L 11/14/23 05:27
Plt Count 184 10^3/uL (130-400) 11/14/23 05:27
Sodium 141 mmol/L (135-145) 11/14/23 05:27
Potassium 4.0 mmol/L (3.5-5.1) 11/14/23 05:27
BUN 16 mg/dl (9-20) 11/14/23 05:27
Creatinine 1.0 mg/dL (0.7-1.3) 11/14/23 05:27
Glucose 101 mg/dl (70-99) H 11/14/23 05:27
Vital Signs and I&O:
Vital Signs
Temp Pulse Resp BP Pulse Ox
98.3 F 64 18 165/91 98
11/14/23 07:00 11/14/23 07:00 11/14/23 07:00 11/14/23 07:00 11/14/23 07:00
Vital Signs
Temp Pulse Resp BP Pulse Ox
98.3 F 64 18 165/91 98
11/14/23 07:00 11/14/23 07:00 11/14/23 07:00 11/14/23 07:00 11/14/23 07:00
Intake & Output
11/12/23 11/13/23 11/14/23 11/15/23
06:59 06:59 06:59 06:59
Intake Total 1889 / 1889
Output Total 3675 / 3675
Balance -1784 / -178
Physical Exam
Physical Exam
GEN: No distress, awake, Ox3
HEENT: supple, anicteric, mmm
LUNGS: CTA, no wheezes/rales
CV: irreg, irreg
ABD: soft, BS+, NT/ND
EXT: No edema
NEURO: Gross non-focal
SKIN: No rash
--- NOTE | 2023-11-14 13:07 | W.PN.URO.CBU ---
Today's Communication / Plan
-
keep cantu teach leg bag and foey care for d/c
Assessment / Plan
-
cantu for now start flomax voiding trial in near fture as outpatient unless inatient for other conditions
Diagnosis
-
Date of Service: November 14, 2023
-
Patient Diagnosis:
Post Op Day:
Patient Diagnosis:acute [ost procedural urinary retention 1250cc drained
Post Op Day:
Subjective
-
still with cantu
Objective
-
Vital Signs
Temp Pulse Resp BP Pulse Ox
98 F 70 18 175/91 96
11/14/23 11:21 11/14/23 11:21 11/14/23 11:21 11/14/23 11:21 11/14/23 11:21
Intake and Output
11/13/23 11/14/23 11/15/23
06:59 06:59 06:59
Intake Total 1890 / 1890
Output Total 3675 / 3675
Balance -1785 / -1785
Intake:
Oral fluids 840 / 840
IV fluids (Total) 1050 / 1050
Output:
Urine, Cantu 6195 / 3675
Laboratory Results
11/14/23 05:27
11/14/23 05:27
Review of Systems
-
: Difficulty Voiding
Physical Exam
-
General - well developed, well nourished, no acute distress
Chest - clear bilaterally
Abdomen - soft, non-tender, positive bowel sounds, no CVAT, no incisional pain or distention
Genitalia - normal
Rectal - normal
Skin - warm & dry with no rash
Neuro - AOx3, no motor deficits
Extremities - no clubbing, no cyanosis, no edema
Incision - clean, dry
Dressing - clean, dry, intact
[2023-11-14] MEDS: APRESOLINE 10 MG IV (13:22)
[2023-11-14] MEDS: OFIRMEV 100 IV (14:31)
--- NOTE | 2023-11-14 15:51 | CM ---
Nimesh was admitted with urinary retention and possible GI bleed. Thibodeaux catheter inserted.
CM met with patient who resides with his in a 2 story house with first floor bedroom/bath.
The patient has been independent in ADLs and ambulation.
The patient has no DME, prior VN or SNF.
PCP - Raheem Lewis
Pharmacy - [facility]
Offered VN for SN/PT and patient declined saying he will not need that at home.
Plan: Discharge to home, watch for home O2 needs, possible VN if mobility declines.
[2023-11-14] MEDS: TOPROL XL 25 MG PO (17:45)
[2023-11-15 03:51] VITALS: BP 169/75
[2023-11-15 07:30] VITALS: BP 171/92
[2023-11-15] MEDS: PROTONIX IV 40 MG IV (08:07)
[2023-11-15] MEDS: FLUSH (NSS) 1 FLUSH IV (08:08)
[2023-11-15] MEDS: NSS (PRESERVATIVE FREE) 10 ML IV (08:08)
[2023-11-15] MEDS: VITAMIN D3 (cholecalciferol) 125 MCG PO (08:08)
[2023-11-15 08:23] LABS: Hemoglobin 14.2 g/dL (13.0-18.0); Mean Corp Hgb Conc. 35.5 g/dL (33.0-37.0); Mean Corpuscular Hgb 33.1 pg (27.0-31.0); Mean Corpuscular Volume 93.2 fL (80.0-94.0); Mean Platelet Volume 11.6 fL (7.4-10.4); Platelet Count 200 10^3/uL (130-400); Red Blood Cell Count 4.29 10^6/uL (4.70-6.10); Red Cell Dist. Width 15.5 % (11.5-14.5); White Blood Cell Count 7.9 10^3/uL (4.8-10.8)
--- NOTE | 2023-11-15 09:12 | W.PN.HOSP.TC ---
Addendum entered and electronically signed by Jaime Baron MD 11/24/23 08:47:
GI bleeding associated with anticoagulation.
Original Note:
Today's Communication/Plan
-
Discharge planning
Assessment / Plan
Assessment / Plan
Physical exam:
General: Well Developed, Well Nourished and No Apparent Distress
HEENT: Normocephalic, Atraumatic and Moist Mucous Membranes
Respiratory: Clear to Auscultation; Negative Wheezes, Rales or Rhonchi
Cardiac: Regular Rhythm and S1/S2
GI: Soft, Nontender and Nondistended
Musculoskeletal: No Clubbing, No Cyanosis and No Edema
Neuro: Awake, Alert and Oriented
Psych: Calm
A/P:
Urinary retention:
Removed Thibodeaux catheter today and voiding spontaneously
Discussed with urology
Started on Flomax
Discussed with and daughter at bedside today
Acute GI bleed:
EGD unremarkable
Colonoscopy with angiectasia status post APC
GI okay to restart anticoagulation
Cleared for discharge from GI perspective
Anemia:
Continue to monitor hemoglobin closely
Paroxysmal atrial fibrillation:
Back on his cardiac medication
Cardiology added Norvasc low-dose
Restarted on anticoagulation
Cleared to discharge by cardiology today
Lung nodules:
Status post recent bronchoscopy pending results outpatient.
Hypertension:
Continue home antihypertensives.
Monitor blood pressure and adjust medications accordingly.
IV hydralazine as needed
DVT prophylaxis-SCDs
CODE STATUS-full code
Anticipated Discharge: Today
Subjective/Interval History
-
Date of Service: November 15, 2023
No new complaints today.
Objective Data
-
Labs:
Laboratory Results
11/15/23
06:51
WBC 7.9
Hgb 14.2
Hct 40.0
Plt Count 200
Vital Signs:
Vital Signs
Temp Pulse Resp BP Pulse Ox
97.8 F 66 18 171/92 97
11/15/23 07:30 11/15/23 07:30 11/15/23 07:30 11/15/23 07:30 11/15/23 08:05
I&O
11/14/23 11/15/23 11/16/23
06:59 06:59 06:59
Intake Total 1890 / 1890 0 / 0
Output Total 3675 / 3675 2675 / 2675
Balance -1785 / -1785 -2675 / -2675
--- NOTE | 2023-11-15 09:20 | W.PN.URO.CBU ---
Today's Communication / Plan
-
- Trial of void this AM (ordered)
- Start tamsulosin 0.4 mg qhs - continue on discharge (ordered)
- Continue tadalafil 5 mg daily
- If PVRs >300-400 cc after TOV today, advise Thibodeaux catheter replacement
D/w patient - agreeable to plan. Of note, patient is due to fly to [place] on Friday w/ spouse. Advised that he may have to fly w/ Thibodeaux catheter in place vs. postpone trip for outpatient voiding trial in office next week.
D/w spouse and daughter in room.
D/w Hospitalist.
Assessment / Plan
-
Acute urinary retention
H/o BPH
Thibodeaux catheter w/ clear UOP
Diagnosis
-
Date of Service: November 15, 2023
-
Patient Diagnosis:
Acute post-procedural urinary retention - 1250 cc drained
BPH
Subjective
-
Urine clear in tubing.
Denies penile/suprapubic pain.
Objective
-
Vital Signs
Temp Pulse Resp BP Pulse Ox
97.8 F 66 18 171/92 97
11/15/23 07:30 11/15/23 07:30 11/15/23 07:30 11/15/23 07:30 11/15/23 08:05
Intake and Output
11/14/23 11/15/23 11/16/23
06:59 06:59 06:59
Intake Total 1890 / 1890 0 / 0
Output Total 3675 / 3675 2675 / 2675
Balance -1785 / -1785 -2675 / -2675
Intake:
Oral fluids 840 / 840 0 / 0
IV fluids (Total) 1050 / 1050
Output:
Urine, Thibodeaux 3675 / 3675 2675 / 2675
Laboratory Results
11/15/23 06:51
11/14/23 05:27
Physical Exam
-
General - well developed, well nourished, no acute distress
Abdomen - soft, non-tender, non-tender
Genitalia - normal, Thibodeaux catheter in place w/ clear yellow urine
Skin - warm & dry with no rash
Neuro - AOx3, no motor deficits
Extremities - no clubbing, no cyanosis, no edema
Care Review
Data Reviewed
Discussed with: Hospitalist and Family
--- NOTE | 2023-11-15 10:00 | PTCARENOTE ---
[place] dc'd as ordered; pt given urianl; instructed to monitor output. Pt DTV by 1600. Will continue to monitor.
[2023-11-15] MEDS: FLOMAX 0.4 MG PO (10:20)
[2023-11-15 11:00] VITALS: BP 156/77
--- NOTE | 2023-11-15 12:46 | CM ---
CM update: Nimesh has plans to fly to [place] with his next week.
[place] has been dc'd, urine output being monitored.
Plan still remains discharge to home with no services.
CM will continue to follow.
[2023-11-15 13:00] VITALS: BP 156/77
--- NOTE | 2023-11-15 13:01 | W.DCSUMMARY ---
Discharge Summary
Discharge Data
Date of Admission: 11/13/23
Date of Discharge: 11/15/23
-
Pending Results: No
Hospital Course
Patient 83 years old male history of hypertension, BPH, hyponatremia, recently diagnosed with atrial fibrillation, recent pneumonia, pulmonary nodule recent bronchoscopy, came into the hospital with urinary retention. Patient also was noted to have
melena indicative of GI bleed. His anticoagulation was on hold and his hemoglobin was monitored and urology GI and cardiology consulted.
He had a Thibodeaux catheter placed and urology consulted. Subsequently, he was started on Flomax and catheter was removed and he was able to void spontaneously. He was kept on his tadalafil as outpatient. He will have follow-up with urology as
outpatient.
GI did an upper endoscopy that had no acute abnormality. He also had a colonoscopy on 11/13 that showed hemorrhoids, diverticulosis, 4 mm polyp removed with a cold snare, and 4 nonbleeding colonic angiectasia's treated with argon plasma coagulation.
GI cleared him to restart anticoagulation. His last hemoglobin upon discharge was 14.2.
Cardiology discussed with patient and he was started back on amlodipine low-dose. Of note amlodipine and hydrochlorothiazide had been stopped during prior recent admission and he was hyponatremic at the time. This time his sodium is normal.
Cardiology and I discussed with GI and he was cleared to be restarted on anticoagulation. Patient was initially hesitant on going back on Eliquis but after cardiology discussed with him he accepted to go back on it. Cardiology also will
contemplate the possibility of watchman as outpatient.
Otherwise patient does not have any signs of active bleeding and voiding well and eager to go home today. He has been cleared by GI, cardiology, and urology for discharge. He will be discharged in stable condition today.
Discharge duration: 35 minutes
Discharge Plan
-
Patient Disposition: Home (Routine Discharge)
Discharge Diagnosis/Procedures: Acute gastrointestinal bleed. For nonbleeding colonic angioectasias status post argon plasma coagulation. Diverticulosis.
Diet: Low Cholesterol
Activity: As tolerated
Blood Work: Please PCP to order CBC, BMP within 1 week
Referrals:
Valdez Trujillo MD [Active] - (call Dr Trujillo [phone] urology to set up voiding plan for bladder )
Christelle Desai MD [Active] - 12/22/23 8:40 am (you have an appointment at the [facility] office to discuss Watchman device. Please call with questions.)
Raheem Lewis MD [Family Provider] - in less than 1 week
Additional Discharge Medication Instructions: Check your blood pressure 3 times weekly call if blood pressure consistently greater than 135/85
Prescriptions:
New
tamsulosin 0.4 mg Capsule
0.4 mg PO DAILY 30 Days Qty: 30 0RF
amlodipine 2.5 mg tablet
2.5 mg PO DAILY Qty: 30 0RF
Continued
benzonatate 200 mg Capsule
200 mg PO BIDPRN PRN (Reason: cough)
omeprazole 20 mg capsule,delayed release(DR/EC)
20 mg PO DAILYPRN PRN (Reason: stomach issues)
tadalafil 10 mg tablet
10 mg PO DAILY
Eliquis 5 mg Tablet
5 mg PO BID Qty: 60 0RF
metoprolol succinate 25 mg tablet extended release 24 hr
25 mg PO QPM
fluticasone propionate 50 mcg/actuation [place],Suspension
1 spray INTRANASAL DAILY
omega 3-ixy-asi-fish oil [Fish Oil] 1,000 mg (120 mg-180 mg) Capsule
1 cap PO DAILY
cholecalciferol (vitamin D3) [Vitamin D3] 125 mcg (5,000 unit) Tablet
125 mcg PO DAILY
Discontinued
Aminta Aspirin 500 mg Tablet
500 mg PO BIDPRN PRN (Reason: mild pain)
Discharge Orders:
Discharge Patient (As Directed); Ordered 11/15/23
Ordered By: Jaime Baron
Discharge Date and Time
Discharge Date/Time: 11/15/23 17:24
Print Language: KOREAN
--- NOTE | 2023-11-15 13:06 | W.PN.CARDCBS ---
Today's Communication / Plan
-
Resume Eliquis discussed with GI
Restart amlodipine 2.5 mg daily, follow blood pressures and outpatient
Appointment arranged for consideration for Watchman device
Impression / Plan
-
PCP: Raheem Lewis
Smoke Room Operator: Octavio Pagan MD
Black stool
Decrease in hemoglobin
Recent diagnosis atrial fibrillation 10/19/2023, started on Eliquis
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
Hypertension
Hyponatremia
BPH
acute urinary retention following bronchoscopy with general anesthesia 11/10/23
Pulmonary nodule status post bronchoscopy 11/09, biopsy pending
Recent acute hypoxic respiratory failure admission 10/20/2023
Recent community-acquired pneumonia 10/20/2023
Cardiac diagnostic testing: Echocardiogram 10/20/23: Normal LV size and function, EF 55%, mild cLVH, mild MR, mild aortic stenosis, PA systolic pressure 34
Plan:
He stable today from a cardiac point of view. Discussed with GI post EGD and colonoscopy and we will resume Eliquis given [id number] score of 3. He has follow-up appointment and would consider watchman.
As noted he was recently diagnosed with atrial fibrillation with controlled ventricular response and was started on eliquis and metoprolol. He saw in f/u in the office on 11/04/2023 and cardioversion was discussed and advised, once he
was on at least 3 weeks of uninterrupted anticoagulation. He did have to stop Eliquis for 5 days prior to the lung biopsy on 11/10/23. He then began having dark stools and drop in hemoglobin. No obvious bleeding on EGD/colonoscopy but some polyps
removed and biopsies taken. He is asymptomatic with atrial fibrillation. Review of telemetry shows he remains in rate controlled A-fib. terminal makeup operator, he would be candidate for Watchman device given recurrent h/o GI bleed.
Hemoglobin is stable.
BPH and acute urinary retention-being seen by urology
Hypertension: Blood pressures have been elevated since admission, as high as 209/113 on initial presentation and now running in the 160/80s. During his last admission hydrochlorothiazide and amlodipine were both stopped. Hydrochlorothiazide was
stopped due to hyponatremia. I resumed amlodipine at a lower dose 2.5 mg daily. I instructed him on checking his blood pressure 3 times weekly and calling if greater than 135/85 consistently.
Pulmonary nodule-biopsy from 11/10/2023 pending.
Progress Note - Smoke Room Operator
Subjective
Date of Service: November 15, 2023
Urine retention noted. No cardiac symptoms.
Objective
Labs:
11/15/23 06:51
11/14/23 05:27
Labs
Hgb 14.2 g/dL (13.0-18.0) 11/15/23 06:51
Hct 40.0 % (39.0-52.0) 11/15/23 06:51
Plt Count 200 10^3/uL (130-400) 11/15/23 06:51
Sodium 141 mmol/L (135-145) 11/14/23 05:27
Potassium 4.0 mmol/L (3.5-5.1) 11/14/23 05:27
BUN 16 mg/dl (9-20) 11/14/23 05:27
Creatinine 1.0 mg/dL (0.7-1.3) 11/14/23 05:27
Glucose 101 mg/dl (70-99) H 11/14/23 05:27
Vital Signs and I&O:
Vital Signs
Temp Pulse Resp BP Pulse Ox
98.1 F 61 20 156/77 98
11/15/23 11:00 11/15/23 11:00 11/15/23 11:00 11/15/23 11:00 11/15/23 11:00
Vital Signs
Temp Pulse Resp BP Pulse Ox
98.1 F 61 20 156/77 98
11/15/23 11:00 11/15/23 11:00 11/15/23 11:00 11/15/23 11:00 11/15/23 11:00
Intake & Output
11/13/23 11/14/23 11/15/23 11/16/23
06:59 06:59 06:59 06:59
Intake Total 1890 / 1890 0 / 0
Output Total 3675 / 3675 2675 / 2675
Balance -1785 / -1785 -2675 / -2675
Physical Exam
Physical Exam
General: Well developed, well nourished in NAD.
Heart: Irregularly irregular
Extremities: No clubbing, cyanosis or edema bilaterally.
Neuro: Grossly nonfocal, awake, alert and oriented x3.
[2023-11-15] MEDS: NORVASC 2.5 MG PO (13:14)
[2023-11-15] MEDS: ELIQUIS 5 MG PO (13:14)
--- NOTE | 2023-11-15 13:32 | PTCARENOTE ---
Pt voided 150 ml clear lyt anthony urine; bladder scanned for 86 ml PVR. Pt denies discomfort; wouldl gavin to go home. Dr. Baron and Dr. Hernandez notified. pt for DC home.
--- NOTE | 2023-11-19 12:30 | PN.CDI ---
CDI
- -
CDI:
Physician Documentation Request
Admit Date: 11/13/23 10:24
Dear Doctor Tod,
Please review the following and provide your response in the progress notes.
Clinical Indicators:
Patient presented with Dark stools.
H&P: patient also endorsed some dark stools over the last few days while he has been on anticoagulation.
Consult 11/12: Recent A-fib on anticoagulation, now with concern for GI bleed
Please clarify the relationship between these conditions:
Yes, ___GI bleeding is related to/associated with/due to _anticoagulation__.
No, _GI bleeding __ is not related to/associated with/due to _anticoagulation__
Unable to determine
Use of terms such as suspected, likely, concern for, or probable (associated with a specific diagnosis that is being evaluated, monitored, or treated as if it exists) are acceptable and can be coded in the inpatient setting, when documented at the
time of discharge.
Thank you,
Tressa Hoang
High School Counselor Inpatient.
Please use your independent medical judgment in providing your response.
== END 2023-11-15 17:24 | disposition home or self-care (01) | DRG 378 ==
LOC: 4 EAST ACU 10:24
PROVIDERS: Internal Medicine Gastroenterology; Nurse Practitioner Adult Health; ADMITTING PHYSICIAN Hospitalist; CONSULT PHYSICIAN Internal Medicine Gastroenterology; CONSULT PHYSICIAN Specialist; EMERGENCY PHYSICIAN Student in an Organized Health Care Education/Training Program; FAMILY PHYSICIAN Family Medicine; OTHER PHYSICIAN Internal Medicine Interventional Cardiology
PROC: 0D5K8ZZ Destruction of Ascending Colon, Via Natural or Artificial Opening Endoscopic (ICD-10-PCS; 2023-11-14)
PROC: 0DB78ZX Excision of Stomach, Pylorus, Via Natural or Artificial Opening Endoscopic, Diagnostic (ICD-10-PCS; 2023-11-14)
PROC: 0DBH8ZZ Excision of Cecum, Via Natural or Artificial Opening Endoscopic (ICD-10-PCS; 2023-11-14)
DX: K57.31 Diverticulosis of large intestine without perforation or abscess with bleeding (principal); D68.32 Hemorrhagic disorder due to extrinsic circulating anticoagulants; K55.21 Angiodysplasia of colon with hemorrhage; T45.515A Adverse effect of anticoagulants, initial encounter; R33.8 Other retention of urine; I48.0 Paroxysmal atrial fibrillation; I10 Essential (primary) hypertension; R33.0 Drug induced retention of urine; T41.45XA Adverse effect of unspecified anesthetic, initial encounter; N40.0 Benign prostatic hyperplasia without lower urinary tract symptoms; K63.5 Polyp of colon; K21.9 Gastro-esophageal reflux disease without esophagitis; K31.89 Other diseases of stomach and duodenum; K64.0 First degree hemorrhoids; R91.8 Other nonspecific abnormal finding of lung field; Y83.8 Other surgical procedures as the cause of abnormal reaction of the patient, or of later complication, without mention of misadventure at the time of the procedure; Z88.5 Allergy status to narcotic agent; Z88.2 Allergy status to sulfonamides; Z87.891 Personal history of nicotine dependence; Z79.01 Long term (current) use of anticoagulants
CPT/HCPCS: 88173; 88305; 36415; 51702; 51798; 71045; 76000; 80048; 80053; 81003; 81015; 85014; 85018; 85025; 85027; 85610; 85730; 86850; 86900; 86901; 87070; 87102; 87116; 87205; 88112; 88342; 93005; 96374; 99285

== ENCOUNTER 2023-11-27 15:13 | Inpatient (IN) | payer MEDICARE, OTHER, SELFPAY ==
[2023-11-27] VITALS (12 sets, daily range): BP systolic 130–168; BP diastolic 59–78; PULSE 60–69; BMI 27.9; BMI 27.6
[2023-11-27 12:49] LABS: % Basophils 0.7 % (0-2); % Eosinophils 1.4 % (0-6); % Immature Granulocytes 0.4 % (0-0.5); % Lymphocytes 24.8 % (20.5-51.1); % Monocytes 9.3 % (1.7-9.3); % Neutrophils 63.4 % (42.2-75.2); Absolute Eosinophils 0.1 10^3/uL (0-0.7); Absolute Lymphocytes 1.4 10^3/uL (1.2-3.4); Absolute Monocytes 0.5 10^3/uL (0.1-0.6); Absolute Neutrophils 3.6 10^3/uL (1.4-6.5); Hematocrit 28.6 % (39.0-52.0); Hemoglobin 9.8 g/dL (13.0-18.0); Mean Corp Hgb Conc. 34.3 g/dL (33.0-37.0); Mean Corpuscular Hgb 30.7 pg (27.0-31.0); Mean Corpuscular Volume 89.7 fL (80.0-94.0); Mean Platelet Volume 10.5 fL (7.4-10.4); Nucleated Red Blood Cells % 0.5 % (-); Platelet Count 319 10^3/uL (130-400); Red Blood Cell Count 3.19 10^6/uL (4.70-6.10); Red Cell Dist. Width 14.6 % (11.5-14.5); White Blood Cell Count 5.6 10^3/uL (4.8-10.8)
[2023-11-27 12:59] LABS: ALT (SGPT) 46 U/L (0-50); AST (SGOT) 39 U/L (17-59); Albumin 3.7 g/dl (3.5-5.0); Alkaline Phosphatase 58 U/L (38-126); Blood Urea Nitrogen 16 mg/dl (9-20); Calcium 9.6 mg/dl (8.4-10.2); Carbon Dioxide 23 mmol/L (22-30); Chloride 107 mmol/L (98-107); Estimated Creatinine Clearance 69 ml/min; Glucose 115 mg/dl (70-99); Potassium 4.6 mmol/L (3.5-5.1); Sodium 140 mmol/L (135-145); Total Bilirubin 0.9 mg/dl (0.2-1.3); eGFR > 60.00
--- NOTE | 2023-11-27 13:07 | ED.GENMED ---
History of Present Illness
General
Chief Complaint: Abnormal Lab Value
Time Seen by Provider: 11/27/23 11:38
History of Present Illness
History of Present Illness:
83-year-old male with history of A-fib on Eliquis presenting to the emergency department for concern of dropping hemoglobin. Patient reports he was admitted to the hospital on 10/17 for pneumonia. During that admission, was found to have atrial
fibrillation and started on Eliquis. After release in the hospital, had intermittent episodes of blood per rectum. He was readmitted to the hospital on 11/13, found to have urinary retention as well with a Thibodeaux catheter placed. Patient
subsequently had a colonoscopy and endoscopy which showed a polyp, internal hemorrhoids, diverticulosis. Patient is still been having blood per rectum, last episode of large amount was about a week ago. Notes some lightheadedness, otherwise denies
chest pain, difficulty breathing, abdominal pain. He is concerned because he had a hemoglobin checked on Friday that was in the 9 range, however on 10/17, hemoglobin is 7.7, and on 11/13 hemoglobin was 14.2. He was instructed by his primary care
doctor to come to the hospital.
Past History
Past History
ED Past Medical History: HTN, Other (BPH ), Other (hemorrhoid) and Other (anemia due rectal bleeding in the past and was treated)
ED Past Surgical History: Tonsilectomy and Other (wisdom teeth )
Phy Exam
Physical Exam
Physical Exam:
General: Well-appearing, no clinical signs of dehydration, nontoxic and in no acute distress
HEENT: protecting airway
Neck: appears supple
CV: Normal heart rate, regular rhythm, no evidence of cyanosis
Resp: No accessory muscle use, no increased work of breathing, lungs clear to auscultation bilaterally
Abd: Soft and non-distended, no tenderness to palpation, Hemoccult negative brown stool
Extremities: No deformities, no swelling, no erythema
Neuro: alert, no focal neurologic deficit
: deferred
Rectal: deferred
Psych: Normal affect
Skin: Intact
Course
Orders/Labs/Results
Orders:
Orders
11/27/23 12:39
Complete Blood Count/With Diff Urgent
Comprehensive Metabolic Panel Urgent
PTT Urgent
Prothrombin Time Urgent
Abnormal Lab Results
11/27/23
12:39
RBC 3.19 L 10^6/uL
(4.70-6.10)
Hgb 9.8 L g/dL
(13.0-18.0)
Hct 28.6 L %
(39.0-52.0)
RDW 14.6 H %
(11.5-14.5)
MPV 10.5 H fL
(7.4-10.4)
PT 15.4 H Sec
(11.4-14.6)
Glucose 115 H mg/dl
(70-99)
Total Protein 6.0 L g/dl
(6.3-8.2)
11/27/23 12:39
11/27/23 12:39
Vital Signs
Initial and Last Documented VS:
Initial Vital Signs
Temp Pulse Resp Pulse Ox
97.8 F 63 16 98
11/27/23 11:17 11/27/23 11:17 11/27/23 11:17 11/27/23 11:17
Last Documented Vital Signs
Temp Pulse Resp BP Pulse Ox
98.5 F 51 17 137/59 100
11/27/23 12:00 11/27/23 12:45 11/27/23 12:45 11/27/23 12:38 11/27/23 12:45
MDM/Problems Addressed
MDM/Problems Addressed:
83-year-old male with history of A-fib on Eliquis presenting to the emergency department for concern of downtrending hemoglobin. Vital signs on arrival significant for mild hypertension which resolved without intervention.
On exam patient is well-appearing with no acute distress or discomfort. Patient hemodynamically stable. Benign abdominal exam, Hemoccult negative brown stool. Will recheck patient's hemoglobin. Patient's primary care doctor had allegedly talked
to GI as well. Will reach out to GI for further recommendations. At this time, no indication for severe GI hemorrhage.
13:15 - Patient's hemoglobin is 9.8, downtrending again from hospitalization on 11/13. GI to see
14:30 - Per GI, recommending admission for colonoscopy tomorrow. Patient agreeable to plan
*Critical Care Note
Total Time (30-74mins, 75-104mins- exclusive of procedures): Not Applicable
ED Attending Note
-
Portions of this chart may have been created with voice recognition software.� Occasional wrong word or��sound alike� substitutions may have occurred due to the inherent limitations of voice recognition software.
Discharge Plan
Departure
Patient with high blood pressure during this ER visit?: Yes
Condition: Good
Discharge Problem:
Anemia
Instructions: Anemia, Possibly From Low Iron, Adult ED
Prescriptions:
No Action
benzonatate 200 mg Capsule
200 mg PO BIDPRN PRN (Reason: cough)
omeprazole 20 mg capsule,delayed release(DR/EC)
20 mg PO DAILYPRN PRN (Reason: stomach issues)
tadalafil 10 mg tablet
10 mg PO DAILY
Eliquis 5 mg Tablet
5 mg PO BID Qty: 60 0RF
metoprolol succinate 25 mg tablet extended release 24 hr
25 mg PO QPM
fluticasone propionate 50 mcg/actuation Fletcher,Suspension
1 spray INTRANASAL DAILY
omega 5-qfi-grp-fish oil [Fish Oil] 1,000 mg (120 mg-180 mg) Capsule
1 cap PO DAILY
cholecalciferol (vitamin D3) [Vitamin D3] 125 mcg (5,000 unit) Tablet
125 mcg PO DAILY
tamsulosin 0.4 mg Capsule
0.4 mg PO DAILY 30 Days Qty: 30 0RF
amlodipine 2.5 mg tablet
2.5 mg PO DAILY Qty: 30 0RF
Referrals:
Raehem Lewis MD [Family Provider] -
Activity Restrictions/Additional Instructions:
You were seen in the emergency department for low hemoglobin
You were found to have a hemoglobin of 9.8. No present indication for a blood transfusion. Please continue to monitor your symptoms, including increased amount of blood in your stool.
Please follow-up closely with your primary care physician.
Return to the emergency department for any worsening of your symptoms, or any development of chest pain, difficulty breathing, abdominal pain with persistent vomiting and inability to tolerate food or liquid by mouth (concern for dehydration),
weakness, headache or confusion, fever greater than 100.4, or any additional symptoms that are concerning to you.
Thank you for choosing [facility].
Interventions
Interventions:
*Risk Screen - Suicide Last Done: 11/27/23 12:43
*General Assessment Last Done: 11/27/23 12:43
*Neglect/Abuse Screening Last Done: 11/27/23 12:43
ED- Fall Risk Assessment Last Done: 11/27/23 12:43
*ED COVID-19 Vaccine History Last Done: 11/27/23 12:43
PA-Uwdxcy-Kizyyruwmz Assessment Last Done: 11/27/23 12:43
ED- Cardiac Assessment Last Done: 11/27/23 12:43
ED- Pulmonary Assessment Last Done: 11/27/23 12:43
Discharge Date and Time
Print Language: MONEGASQUE
[2023-11-27 13:53] LABS: INR 1.21; PT 15.4 Sec (11.4-14.6)
[2023-11-27 13:54] LABS: APTT 32.4 Sec (23.4-35.0)
--- NOTE | 2023-11-27 14:35 | HPS.HSE ---
Family Physician
-
Family Physician: Raheem Lewis
Chief Complaint
-
rectal bleed
History of Present Illness
83 year old with PMH for BPH, HTN, hemorrhoid, anemia, atrial fib presented to us with concern of dropping hemoglobin. Patient reports he was admitted to the hospital on 10/17 for pneumonia. During that admission, was found to have atrial
fibrillation and started on Eliquis. After release in the hospital, had intermittent episodes of blood per rectum. Patient subsequently had a colonoscopy and endoscopy which showed a polyp, internal hemorrhoids, diverticulosis. Patient is still
been having blood per rectum, with large bloody BM on Friday. patient had a blood on work on Friday with the hgb of 10. patient stated lightheadedness. denies chest pain, difficulty breathing. denied abdominal pain,N,V. denied dysuria or hematuria.
on arrival hgb of 9.8. blood consented. admitting for further management.
Medical History
Past Medical History
Past Medical History: Reports Other
Additional Past Medical History:
iron anemia
Pulmonary hypertension
Restrictive lung disease
Pneumonia
Past Surgical History: Reports None
Social History
Tobacco: Non-smoker
Alcohol: None
Drug: None
Personal:
Living: With Family
Family History
Family History: Not pertinent
Allergies / Home Medications
Allergies reflects when Allergies were last updated in [employer].
Home Medications with original date entered in [employer]
Allergy/Medication List:
Allergies
Allergy/AdvReac Type Severity Reaction Status Date / Time
codeine Allergy hallucinati Verified 11/27/23 11:19
ons,malaise
Sulfa (Sulfonamide Allergy hallucinati Verified 11/27/23 11:19
Antibiotics) ons,malaise
Home Medications
benzonatate 200 mg capsule 200 mg PO BIDPRN PRN cough 10/19/23
omeprazole 20 mg capsule,delayed release 20 mg PO DAILYPRN PRN stomach issues 10/19/23
tadalafil 10 mg tablet 10 mg PO DAILY Urinary Issue 10/19/23
apixaban 5 mg tablet (Eliquis) 5 mg PO BID #60 tabs 10/21/23
cholecalciferol (vitamin D3) 125 mcg (5,000 unit) tablet (Vitamin D3) 125 mcg PO DAILY Supplement 11/06/23
fluticasone propionate 50 mcg/actuation nasal spray,suspension 1 spray intranasal DAILY Congestion 11/06/23
metoprolol succinate 25 mg tablet,extended release 24 hr 25 mg PO QPM Heart Failure 11/06/23
omega 5-ifj-khz-fish oil 1,000 mg (120 mg-180 mg) capsule (Fish Oil) 1 cap PO DAILY High Cholesterol 11/06/23
amlodipine 2.5 mg tablet 2.5 mg PO DAILY #30 tabs 11/15/23
tamsulosin 0.4 mg capsule 0.4 mg PO DAILY 30 days #30 caps 11/15/23
Review of Systems
-
Abdomen/GI: Reports No Symptoms and Bloody Stools
Physical Exam
Vital Signs
Vital Signs
Temp Pulse Resp BP Pulse Ox
98.5 F 51 17 137/59 100
11/27/23 12:00 11/27/23 12:45 11/27/23 12:45 11/27/23 12:38 11/27/23 12:45
Physical Exam
General: Well Developed, Well Nourished and No Apparent Distress
HEENT: NormoCephalic, Moist mucous membranes and Atraumatic
Respiratory: Clear
Cardiac: S1/S2 and Regular Rhythm; No Murmur or Rub
GI: Soft, Non Tender, Non Distended and Normal Bowel Sounds; No Organomegaly
Rectal: Deferred by Provider
Musculoskeletal: No Clubbing, No Cyanosis and No Edema
Skin: No Rash
Neuro: AO x 3 and Nonfocal/grossly intact
Psych: Calm
Laboratory Results
-
11/27/23 12:39
11/27/23 12:39
Laboratory Results
PT 15.4 Sec (11.4-14.6) H 11/27/23 12:39
INR 1.21 11/27/23 12:39
APTT 32.4 Sec (23.4-35.0) 11/27/23 12:39
Total Bilirubin 0.9 mg/dl (0.2-1.3) 11/27/23 12:39
AST 39 U/L (17-59) 11/27/23 12:39
ALT 46 U/L (0-50) 11/27/23 12:39
Alkaline Phosphatase 58 U/L (38-126) 11/27/23 12:39
Data Reviewed
-
Lab Data: Labs Reviewed by me
Impression/Plan
-
# acute blood loss anemia likely from GI bleed
- colonoscopy/EGD on 11/13 which showed internal hemorrhoid, a polyp and diverticulosis
- his hemoglobin today 9.8
- Hemoccult test was negative
- clear liquid diet for now, n.p.o. after midnight
- plan for scope tomorrow
- GI consulted
#Paroxysmal atrial fibrillation
- acute EKG
-Hold Eliquis
-Metoprolol continued
#Lung nodules:
# essential Hypertension
- Norvasc continued with hold parameters
# urinary retention
- Flomax continued
#DVT prophylaxis-SCDs
CODE STATUS-full code
--- NOTE | 2023-11-27 15:07 | CON.GI ---
Consultation
-
Date/Time Consultation Requested: 11/27/23
Date/Time Consultation Performed: 11/27/23
Requesting Provider: Dr. Tabor
Performing Provider: Dr. Gu
Medical History
Chief Complaint / HPI
Chief Complaint: hematochezia, anemia.
History of Present Illness:
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 He follows outpatient with Dr. Rodríguez, reported an episode of large-volume
hematochezia last Friday, instructed to come to the ER for further evaluation. Of note he was hospitalized last month at which time he underwent bidirectional endoscopy for reported dark stools, found to have 4 nonbleeding AVMs in the cecum which
were treated with APC as well as additional findings below. Hemoglobin on 10/19/2023 was 17.7 on day of discharge, likely hemoconcentrated. It was repeated on 11/15/2023 at which time it was 14.2. Currently, his hemoglobin is 9.8, MCV 89, platelets
319, BUN 16, creatinine 1. He is hemodynamically stable. Last dose of eliquis was this AM. Currently discussing ablation or possible watchman procedure with Cardiology. He does not take any other blood thinners. Denies NSAID use.
EGD (11/14/23, Dr. Lawler):
Findings:
The examined esophagus was normal.
No blood or hematin seen in the stomach. A few localized erosions with
no stigmata of recent bleeding were found in the gastric antrum.
Biopsies were taken with a cold forceps for Helicobacter pylori testing.
A few 4 to 9 mm nodules with a localized distribution were found in the
duodenal bulb and in the first portion of the duodenum. This was
biopsied with a cold forceps for histology.
Colonoscopy (11/14/23, Dr. Lawler):
Findings:
Hemorrhoids were found on perianal exam.
The terminal ileum appeared normal. No hematin seen.
No blood or hematin seen in the colonic lumen. A moderate amount of
liquid semi-liquid stool was found in the entire colon, making
visualization difficult. Lavage of the area was performed using copious
amounts of sterile water, resulting in clearance with fair visualization.
A 4 mm polyp was found in the cecum. The polyp was sessile. The polyp
was removed with a cold snare. Resection and retrieval were complete.
Four small localized angioectasias without bleeding were found in the
ascending colon. Coagulation for bleeding prevention using argon plasma
at 0.8 liters/minute and 20 bucio was successful.
Multiple small-mouthed diverticula were found in the sigmoid colon,
descending colon and transverse colon.
Internal hemorrhoids were found during retroflexion. The hemorrhoids
were small and Grade I (internal hemorrhoids that do not prolapse).
12/11/21 COLON- 5mm DC adenoma. 3mm TC adenoma. Diverticulosis. Cecal ectasias bled on contact cauterized w APC, clipped x 2.
�������12/08/19 [facility] END[facility]- Possible cecal ectasia
�������11/18/19 COLON ([facility])- Hemorrhoids. Nonadenomatous polyp. Diverticulosis
�������11/09/19 EGD ([facility])- Irregular z line bx neg HP. HH. Bx neg H pylori
�������11/26/17 COLON ([facility])- Two adenomas 2-3mm cecum, TC. Diverticulosis. Hemorrhoids
�������10/28/16 COLON ([facility])- Multiple adenomas 2-4mm cecum, AC x 2, TC, SC x 2. Hemorrhoids. Diverticulosis
Past Medical History
Past Medical History: Arrhythmias (new afib), HTN and Other (BPH, hemorrhoids, anemia, colon polyps, hemorrhoids, cecal ectasia, diverticulosis )
Past Surgical History: Tonsilectomy and Other (wisdom teeth )
Social History
Tobacco: Non-Smoker
Alcohol: None
Drug: None
Personal:
Living: With Family
Employment: Retired
Family History
Family History: Other (no family hx colon CA or polyps)
Allergies / Home Medications
Allergy/AdvReac Type Severity Reaction Status Date / Time
codeine Allergy hallucinati Verified 11/27/23 11:19
ons,malaise
Sulfa (Sulfonamide Allergy hallucinati Verified 11/27/23 11:19
Antibiotics) ons,malaise
�Medication �Instructions �Recorded
benzonatate 200 mg capsule 200 mg PO BIDPRN PRN cough 10/19/23
omeprazole 20 mg capsule,delayed 20 mg PO DAILYPRN PRN stomach 10/19/23
release issues
tadalafil 10 mg tablet 10 mg PO DAILY Urinary Issue 10/19/23
apixaban 5 mg tablet (Eliquis) 5 mg PO BID #60 tabs 10/21/23
cholecalciferol (vitamin D3) 125 125 mcg PO DAILY Supplement 11/06/23
mcg (5,000 unit) tablet (Vitamin
D3)
fluticasone propionate 50 1 spray intranasal DAILY Congestion 11/06/23
mcg/actuation nasal
spray,suspension
metoprolol succinate 25 mg 25 mg PO QPM Heart Failure 11/06/23
tablet,extended release 24 hr
omega 7-eal-opd-fish oil 1,000 mg 1 cap PO DAILY High Cholesterol 11/06/23
(120 mg-180 mg) capsule (Fish Oil)
amlodipine 2.5 mg tablet 2.5 mg PO DAILY #30 tabs 11/15/23
tamsulosin 0.4 mg capsule 0.4 mg PO DAILY 30 days #30 caps 11/15/23
Review of Systems
-
History Source: Patient and Family ()
All other systems: A 12 pt ROS was Negative except as stated above in HPI
Vital Signs
Temp Pulse Resp BP Pulse Ox
98.5 F 51 17 137/59 100
11/27/23 12:00 11/27/23 12:45 11/27/23 12:45 11/27/23 12:38 11/27/23 12:45
Physical Exam
Exam
General: Well Developed, Well Nourished and No Apparent Distress
HEENT: Normocephalic, Anicteric and Moist Mucous Membranes
GI: Soft, Non Tender, Non Distended and Normal Bowel Sounds
Results
WBC 5.6 10^3/uL (4.8-10.8) 11/27/23 12:39
Hgb 9.8 g/dL (13.0-18.0) L 11/27/23 12:39
Hct 28.6 % (39.0-52.0) L 11/27/23 12:39
MCV 89.7 fL (80.0-94.0) 11/27/23 12:39
Plt Count 319 10^3/uL (130-400) 11/27/23 12:39
Absolute Neuts (auto) 3.6 10^3/uL (1.4-6.5) 11/27/23 12:39
PT 15.4 Sec (11.4-14.6) H 11/27/23 12:39
INR 1.21 11/27/23 12:39
APTT 32.4 Sec (23.4-35.0) 11/27/23 12:39
Sodium 140 mmol/L (135-145) 11/27/23 12:39
Potassium 4.6 mmol/L (3.5-5.1) 11/27/23 12:39
Chloride 107 mmol/L (98-107) 11/27/23 12:39
Carbon Dioxide 23 mmol/L (22-30) 11/27/23 12:39
BUN 16 mg/dl (9-20) 11/27/23 12:39
Creatinine 1.0 mg/dL (0.7-1.3) 11/27/23 12:39
Calcium 9.6 mg/dl (8.4-10.2) 11/27/23 12:39
Total Bilirubin 0.9 mg/dl (0.2-1.3) 11/27/23 12:39
AST 39 U/L (17-59) 11/27/23 12:39
ALT 46 U/L (0-50) 11/27/23 12:39
Alkaline Phosphatase 58 U/L (38-126) 11/27/23 12:39
Diagnostic Image Results:
Prior GI Procedures: See above under, under HPI
EGD:
Colonoscopy:
Assessment / Plan
-
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
#Hematochezia- suspect LGIB 2/2 known cecal AVMs vs. distal small bowel source vs. diverticular bleeding vs. less likely hemorrhoidal or ischemic.
Recommendations:
-Clear liquid diet
-2 large bore peripheral gauge IVs
-CBC q12 hr
-transfuse for Hgb <7.0
-hold eliquis--last dose early this morning, makes interventions more limited, discussed with patient and , could clip/inject epinephrine
-NPO PMN
-colon prep today for colonoscopy tomorrow--suspect bleeding source is known cecal AVMs vs. distal small bowel source
-last VCE in 2019 without evidence of small bowel AVMs, if cecal AVMs do not appear to be culprit on exam, would recommend repeating outpatient VCE
Data Reviewed
-
Old Records: Reviewed
-
-
Thank you for consultation and allowing me to participate in the patient's care. Please call the [facility] physician during the after hours with any questions or concerns.
--- NOTE | 2023-11-27 15:18 | W.PN.UPDATE ---
Update Note
Progress Note Update
This note serves as an addendum to the H&P by irrigation technician ANDREW Mildred LAURA
In summary:
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
Reports intermittently been having blood per rectum for the past few weeks, had a colonoscopy and EGD at on 11/13, which showed internal hemorrhoids, a polyp, and diverticulosis.
- last episode of large amount of blood per rectum was last Friday.
- Hgb when he left hospital on 10/18 was 17.7 (probably hemoconcentrated), and 14.2 on 11/14.
- Now it's 9.8.
Hemodynamically stable
NEG Hemoccult test by ER SUPERVISOR [employer]IVESTOCK YARD
GI consulted at ER and plan for EGD/ C scopetomorrow.
- Starting prep today
- Clear for now . NPO after MN and IVF
- Hold Eliquis - last dose was 11/27/23 8am
- IV PPI BID
DVT Px; SCD
Full code
IP TLM
--- NOTE | 2023-11-27 16:12 | EDRN ---
paper report was tubed up to the receiving unit
[2023-11-27] MEDS: DULCOLAX 10 MG PO (16:47)
[2023-11-27] MEDS: MIRALAX 51 GRAMS PO ×3 (16:47→22:17)
--- NOTE | 2023-11-27 16:56 | VATNOTE ---
attempted unsuccessfuly x3 for 2nd IV line; PCN informed. Pt only on Protonix IV bid; will leave one line in .
[2023-11-27] MEDS: TOPROL XL 25 MG PO (18:03)
[2023-11-27] MEDS: PROTONIX IV 40 MG IV (20:21)
[2023-11-27] MEDS: NSS (PRESERVATIVE FREE) 10 ML IV (20:22)
--- NOTE | 2023-11-27 23:26 | PTCARENOTE ---
Pt refused 21:00 H&H, risks explained to pt. Pt verbalized a good understanding of teaching provided by this RN. Will monitor.
[2023-11-28] VITALS (12 sets, daily range): BP systolic 17–162; BP diastolic 57–79; PULSE 60–71
[2023-11-28 06:43] LABS: Hematocrit 28.9 % (39.0-52.0); Hemoglobin 9.8 g/dL (13.0-18.0); Mean Corp Hgb Conc. 33.9 g/dL (33.0-37.0); Mean Corpuscular Hgb 31.4 pg (27.0-31.0); Mean Corpuscular Volume 92.6 fL (80.0-94.0); Mean Platelet Volume 10.6 fL (7.4-10.4); Platelet Count 308 10^3/uL (130-400); Red Blood Cell Count 3.12 10^6/uL (4.70-6.10); Red Cell Dist. Width 14.3 % (11.5-14.5); White Blood Cell Count 5.5 10^3/uL (4.8-10.8)
[2023-11-28 07:07] LABS: Blood Urea Nitrogen 11 mg/dl (9-20); Calcium 9.8 mg/dl (8.4-10.2); Carbon Dioxide 23 mmol/L (22-30); Chloride 107 mmol/L (98-107); Estimated Creatinine Clearance 69 ml/min; Glucose 103 mg/dl (70-99); Potassium 4.6 mmol/L (3.5-5.1); Sodium 141 mmol/L (135-145); eGFR > 60.00
[2023-11-28] MEDS: NORVASC 2.5 MG PO (09:54)
[2023-11-28] MEDS: FLOMAX 0.4 MG PO (09:54)
[2023-11-28] MEDS: NSS (PRESERVATIVE FREE) 10 ML IV (09:54)
[2023-11-28] MEDS: PROTONIX IV 40 MG IV (09:54)
--- NOTE | 2023-11-28 13:22 | W.PN.HOSP.TC ---
Today's Communication/Plan
-
restart diet and eliquis this evening
monitor for further blood bms, cbc
Assessment / Plan
Assessment / Plan
Physical Exam
General: Well Developed, Well Nourished and No Apparent Distress
HEENT: NormoCephalic, Moist mucous membranes and Atraumatic
Respiratory: Clear
Cardiac: S1/S2 and Regular Rhythm; No Murmur or Rub
GI: Soft, Non Tender, Non Distended and Normal Bowel Sounds; No Organomegaly
Rectal: Deferred by Provider
Musculoskeletal: No Clubbing, No Cyanosis and No Edema
Skin: No Rash
Neuro: AO x 3 and Nonfocal/grossly intact
Psych: Calm
#Acute blood loss anemia likely from GI bleed
- colonoscopy/EGD on 11/13 which showed internal hemorrhoid, a polyp and diverticulosis
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
- Resume diet
-Restart Eliquis this evening
� Follow-up pathology
� Most likely need video capsule endoscopy outpatient
-Repeat colonoscopy in 1 year
-Monitor CBC, rectal bleeding
#Paroxysmal atrial fibrillation
- acute EKG
- Eliquis can be resumed tonight
-Metoprolol continued
#Lung nodules:
# essential Hypertension
- Norvasc continued with hold parameters
# urinary retention
- Flomax continued
#DVT prophylaxis-Eliquis
CODE STATUS-full code
Anticipated Discharge: Within 24 hours
Subjective/Interval History
-
Date of Service: November 28, 2023
colonoscopy today
Objective Data
-
Labs:
Laboratory Results
11/28/23
06:07
WBC 5.5
Hgb 9.8 L
Hct 28.9 L
Plt Count 308
Sodium 141
Potassium 4.6
Chloride 107
Carbon Dioxide 23
BUN 11
Creatinine 1.0
Glucose 103 H
Calcium 9.8
Vital Signs:
Vital Signs
Temp Pulse Resp BP Pulse Ox
97.8 F 57 17 134/68 99
11/28/23 13:15 11/28/23 13:15 11/28/23 13:15 11/28/23 13:15 11/28/23 13:15
Review of Systems
-
History Source: Patient
All other systems: Not reviewed unless documented
Data Reviewed
-
Labs: Labs Reviewed by me
[2023-11-28] MEDS: TOPROL XL 25 MG PO (17:32)
[2023-11-28] MEDS: ELIQUIS 5 MG PO (17:32)
[2023-11-28] MEDS: PROTONIX 40 MG PO (20:08)
[2023-11-29 07:43] VITALS: BP 139/68
[2023-11-29] MEDS: NORVASC 2.5 MG PO (08:15)
[2023-11-29] MEDS: FLOMAX 0.4 MG PO (08:15)
[2023-11-29] MEDS: ELIQUIS 5 MG PO (08:16)
[2023-11-29] MEDS: PROTONIX 40 MG PO (08:18)
[2023-11-29 08:30] LABS: Hematocrit 28.3 % (39.0-52.0); Hemoglobin 9.4 g/dL (13.0-18.0); Mean Corp Hgb Conc. 33.2 g/dL (33.0-37.0); Mean Corpuscular Volume 93.4 fL (80.0-94.0); Mean Platelet Volume 10.7 fL (7.4-10.4); Platelet Count 349 10^3/uL (130-400); Red Blood Cell Count 3.03 10^6/uL (4.70-6.10); Red Cell Dist. Width 14.4 % (11.5-14.5); White Blood Cell Count 6.9 10^3/uL (4.8-10.8)
[2023-11-29 08:58] LABS: Blood Urea Nitrogen 11 mg/dl (9-20); Calcium 9.4 mg/dl (8.4-10.2); Carbon Dioxide 22 mmol/L (22-30); Chloride 106 mmol/L (98-107); Estimated Creatinine Clearance 63 ml/min; Glucose 104 mg/dl (70-99); Potassium 4.3 mmol/L (3.5-5.1); Sodium 140 mmol/L (135-145); eGFR > 60.00
--- NOTE | 2023-11-29 10:04 | W.PN.GI.CBS2 ---
Today's Communication / Plan
-
outpatient vce, discharge
Assessment / Plan
-
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
Cscope yesterday no source suspect small bowel bleeding
Recommendations:
- Continue Eliquis
- Outpatient VCE - message sent to office to coordinate
- Patient planning for Watchman
- Monitor for overt bleeding
- Monitor hb outpatient
Has follow up Dr. Lawler in January
Patient being discharged today GI will sign off pls call with ?S
Subjective
Subjective
Date of Service: November 29, 2023
brown stool feels well ready to go home
Objective
Data Reviewed
Laboratory Data:
Laboratory Results
11/29/23 06:22
11/29/23 06:22
Laboratory Results
PT 15.4 Sec (11.4-14.6) H 11/27/23 12:39
INR 1.21 11/27/23 12:39
APTT 32.4 Sec (23.4-35.0) 11/27/23 12:39
Total Bilirubin 0.9 mg/dl (0.2-1.3) 11/27/23 12:39
AST 39 U/L (17-59) 11/27/23 12:39
ALT 46 U/L (0-50) 11/27/23 12:39
Alkaline Phosphatase 58 U/L (38-126) 11/27/23 12:39
Vital Signs and I&O:
Vital Signs
Temp Pulse Resp BP Pulse Ox
98 F 91 21 139/68 96
11/29/23 07:43 11/29/23 08:15 11/29/23 07:43 11/29/23 08:15 11/29/23 07:43
I&O
11/28/23 11/29/2311/29/24
06:59 06:59 06:59
Intake Total 480 / 480
Balance 480 / 480
Physical Exam
Physical Exam
GI: Non Distended and Non Tender
--- NOTE | 2023-11-29 10:50 | W.PN.HOSP.TC ---
Addendum entered and electronically signed by Keagan Bright MD 11/29/23 13:58:
Spoke to patient regarding pulmonary masses- should f/u with pcp/pulmonary outpatient. Pulm had does bx/bronch and is following
Addendum entered and electronically signed by Keagan Bright MD 11/29/23 13:55:
[id number]
Original Note:
Today's Communication/Plan
-
Low residue diet
Continue Eliquis, CBC in 3 to 5 days with PCP
Outpatient VCE
Possible Watchman procedure
Educated on GI bleeding/symptoms and returning back to the hospital if need be
Follow PCP/cardiology/GI outpatient
Assessment / Plan
Assessment / Plan
Physical Exam
General: Well Developed, Well Nourished and No Apparent Distress
HEENT: NormoCephalic, Moist mucous membranes and Atraumatic
Respiratory: Clear
Cardiac: S1/S2 and Regular Rhythm; No Murmur or Rub
GI: Soft, Non Tender, Non Distended and Normal Bowel Sounds; No Organomegaly
Rectal: Deferred by Provider
Musculoskeletal: No Clubbing, No Cyanosis and No Edema
Skin: No Rash
Neuro: AO x 3 and Nonfocal/grossly intact
Psych: Calm
#Acute blood loss anemia likely from GI bleed
- colonoscopy/EGD on 11/13 which showed internal hemorrhoid, a polyp and diverticulosis
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
- Resume diet�low residue
-Restarted Eliquis evening of 11/27 - no episodes of bleeding; hgb remains stable
-F/u CBC in 3-5 days with PCP/GI
� Follow-up pathology
� video capsule endoscopy outpatient
-Repeat colonoscopy in 1 year
-Educated on returning back to the hospital for recurrent episodes/symptoms of gi bleeding or drop in hgb
#Paroxysmal atrial fibrillation
- acute EKG
- Eliquis resumed
-Metoprolol continued
-F/u cards outpatient for watchman procedure
#Lung nodules:
# essential Hypertension
- Norvasc continued with hold parameters
# urinary retention
- Flomax continued
#DVT prophylaxis-Eliquis
CODE STATUS-full code
More than 30 minutes spent in discharge including
Final examination of the patient
Summarizing hospital stay
Instructions for continuing care to all relevant caregivers
Preparation of discharge records, prescriptions, and referral forms
Total time spent (35 in minutes):
Anticipated Discharge: Today
Subjective/Interval History
-
Date of Service: November 29, 2023
No acute events overnight, no bloody bowel movements/hematochezia
Objective Data
-
Labs:
Laboratory Results
11/29/23
06:22
WBC 6.9
Hgb 9.4 L
Hct 28.3 L
Plt Count 349
Sodium 140
Potassium 4.3
Chloride 106
Carbon Dioxide 22
BUN 11
Creatinine 1.1
Glucose 104 H
Calcium 9.4
Vital Signs:
Vital Signs
Temp Pulse Resp BP Pulse Ox
98 F 91 21 139/68 96
11/29/23 07:43 11/29/23 08:15 11/29/23 07:43 11/29/23 08:15 11/29/23 08:00
I&O
11/28/23 11/29/23 11/30/23
06:59 06:59 06:59
Intake Total 480 / 480
Balance 480 / 480
Review of Systems
-
History Source: Patient
All other systems: Not reviewed unless documented
Data Reviewed
-
Medical Tests (Nuc Med, Echo etc): Report Reviewed by me
Labs: Labs Reviewed by me
--- NOTE | 2023-11-29 10:54 | W.DS.TRANS ---
DC Summary - [employer]
-
Discharge Instructions:
Sleep Apnea Risk Intermediate
Discharge Diagnosis/Procedures
#Acute blood loss anemia likely from GI bleed
Diet Low Fiber,Low Residue,Low Cholesterol,Low Fat
Activity As tolerated
Blood Work cbc in 3-5 days with pcp/GI
Others Tests Video capsule endoscopy with GI
Instructions:
Stand-Alone Forms:
Changes to Home Medications: No
Discharge Medications:
DC Medications w/original date entered in [employer]
benzonatate 200 mg capsule 200 mg PO BIDPRN PRN cough 10/19/23
omeprazole 20 mg capsule,delayed release 20 mg PO DAILYPRN PRN stomach issues 10/19/23
tadalafil 10 mg tablet 10 mg PO DAILY Urinary Issue 10/19/23
apixaban 5 mg tablet (Eliquis) 5 mg PO BID #60 tabs 10/21/23
cholecalciferol (vitamin D3) 125 mcg (5,000 unit) tablet (Vitamin D3) 125 mcg PO DAILY Supplement 11/06/23
fluticasone propionate 50 mcg/actuation nasal spray,suspension 1 spray intranasal DAILY Congestion 11/06/23
metoprolol succinate 25 mg tablet,extended release 24 hr 25 mg PO QPM Heart Failure 11/06/23
omega 3-bru-yob-fish oil 1,000 mg (120 mg-180 mg) capsule (Fish Oil) 1 cap PO DAILY High Cholesterol 11/06/23
amlodipine 2.5 mg tablet 2.5 mg PO DAILY #30 tabs 11/15/23
tamsulosin 0.4 mg capsule 0.4 mg PO DAILY 30 days #30 caps 11/15/23
Home Medication Changes
na
Pending Results: No
--- NOTE | 2023-11-29 11:05 | CM ---
CM met with pt and family member bedside
Discharge order noted- pt dressed and ready to leave
Pt is independent throughout room and no dc needs noted
Discharge Disposition- home,no needs
== END 2023-11-29 11:21 | disposition home or self-care (01) | DRG 393 ==
LOC: 3 WEST ACU 15:13
PROVIDERS: Registered Nurse; Student in an Organized Health Care Education/Training Program; ADMITTING PHYSICIAN Internal Medicine; ATTENDING PHYSICIAN Internal Medicine; CONSULT PHYSICIAN Internal Medicine; EMERGENCY PHYSICIAN Student in an Organized Health Care Education/Training Program; FAMILY PHYSICIAN Family Medicine
PROC: 0DBL8ZZ Excision of Transverse Colon, Via Natural or Artificial Opening Endoscopic (ICD-10-PCS; 2023-11-28)
DX: K64.0 First degree hemorrhoids (principal); K57.31 Diverticulosis of large intestine without perforation or abscess with bleeding; D62 Acute posthemorrhagic anemia; K63.3 Ulcer of intestine; I10 Essential (primary) hypertension; D50.9 Iron deficiency anemia, unspecified; I48.0 Paroxysmal atrial fibrillation; K63.5 Polyp of colon; J98.4 Other disorders of lung; N40.1 Benign prostatic hyperplasia with lower urinary tract symptoms; R91.1 Solitary pulmonary nodule; R33.8 Other retention of urine; E78.00 Pure hypercholesterolemia, unspecified; Z88.5 Allergy status to narcotic agent; Z88.2 Allergy status to sulfonamides; Z79.01 Long term (current) use of anticoagulants; Z79.899 Other long term (current) drug therapy
CPT/HCPCS: 88305; 80048; 80053; 85025; 85027; 85610; 85730; 93005; 99285

== ENCOUNTER → 2023-12-09 09:43 | Outpatient (REF) | payer MEDICARE, OTHER, SELFPAY | LOC: RAD 09:43 | PROVIDERS: ATTENDING PHYSICIAN Family Medicine | DX: R06.02 Shortness of breath (principal) | CPT/HCPCS: 71046 ==

== ENCOUNTER 2023-12-15 09:11 | Day surgery (SDC) | payer MEDICARE, OTHER, SELFPAY ==
--- NOTE | 2023-12-15 11:07 | ITS.CL.CARDI ---
[employer] - Cardioversion
Cardioversion
Procedure Report:
Date of Procedure: Dec 15 2023
Procedure: Cardioversion
Indication: Symptomatic atrial fibrillation
Performing Physician: Boris Cortez DO, FACC
Technique: The patient was brought to the holding area. Signed informed consent was obtained. A time out was called and performed. The patient was anesthetized by the anesthesia service. Anticoagulation status was reviewed and appropriate. R2 pads
were placed anteriorly and posteriorly. A 200 J synchronized biphasic shock which was unsuccessful in restoring sinus. He then had subsequent 300 J shock which was successful in restoring normal sinus rhythm with some brief but without significant
bradycardia. There were no complications.
Conclusion: Uncomplicated cardioversion from atrial fibrillation to sinus rhythm.
Recommendation: Routine post cardioversion care. Continue halfway anticoagulation.
== END 2023-12-15 11:40 | disposition home or self-care (01) ==
LOC: CATH 09:11
PROVIDERS: ATTENDING PHYSICIAN Nuclear Medicine Nuclear Cardiology; FAMILY PHYSICIAN Family Medicine; OTHER PHYSICIAN Internal Medicine Cardiovascular Disease
DX: I48.0 Paroxysmal atrial fibrillation (principal); I10 Essential (primary) hypertension; E78.00 Pure hypercholesterolemia, unspecified; Z87.891 Personal history of nicotine dependence; Z79.01 Long term (current) use of anticoagulants
CPT/HCPCS: 92960; 93005

== ENCOUNTER 2023-12-21 01:05 | Emergency (ER) | payer MEDICARE, OTHER, SELFPAY ==
[2023-12-21 01:06] VITALS: BP 184/89
[2023-12-21 02:31] VITALS: BMI 29.3
[2023-12-21 02:52] LABS: Urine Albumin 1+ (Neg - Trace); Urine Bilirubin Negative (Negative); Urine Character Clear (Clear); Urine Color Yellow; Urine Glucose Negative (Negative); Urine Ketone Negative (Negative); Urine Leukocyte Negative (Negative); Urine Nitrite Negative (Negative); Urine Occult Blood Negative (Negative); Urine Urobilinogen Negative (Neg - 1+)
[2023-12-21 03:12] LABS: Urine Red Blood Cell None Seen /HPF (0-2); Urine White Cell 0-2 /HPF (0-5)
--- NOTE | 2023-12-21 03:19 | ED.GENMED ---
History of Present Illness
General
Chief Complaint: Male Genito-Urinary Symptoms
Source: patient and previous hospital records (Recent hospitalizations end of October and again mid-November for acute GI bleeding. Hospitalization in October complicated by BPH requiring Thibodeaux catheter insertion.)
Exam Limitations: none
Time Seen by Provider: 12/21/23 02:44
Nursing documentation reviewed up to this point in time: agreed with
History of Present Illness
History of Present Illness:
This is an 83-year-old gentleman with history of hypertension, BPH, atrial fibrillation chronically maintained on Eliquis with recent hospitalizations in October and again mid-November for GI bleed. Hospitalization in October complicated with acute
urinary retention requiring Thibodeaux catheter insertion. 30-day course of tamsulosin was started which he finished 2 days ago. During that hospitalization Thibodeaux catheter was able to be successfully removed and he has been voiding well since then
until tonight when he developed diminished urge to void and his been voiding only small amounts, slow trickling stream.
He has been following with cardiology and underwent cardioversion for persistent A-fib earlier this week. Yesterday he was started on Lasix and has had his second dose today.
He denies hematuria, denies back pain or flank pain, no fever no chills, no chest pain, no dizziness nor lightheadedness. He has had no black or tarry nor melanotic stools.
Past History
Past History
ED Past Medical History: HTN, Other (BPH ), Other (hemorrhoid) and Other (anemia due rectal bleeding in the past and was treated)
ED Past Surgical History: Tonsilectomy and Other (wisdom teeth )
Social History
Tobacco: Non-smoker
Alcohol: Occasional
Personal:
Living: with family
Employment: Retired
Family History
Family History: Other (Noncontributory)
Phy Exam
Physical Exam
Physical Exam:
GENERAL: Alert , in no apparent distress
EYE: anicteric
NECK: Supple, nontender
ENT: oral mucosa is moist. No rhinorrhea.
CARDIAC: Regular rate and rhythm. no murmur.
LUNGS: Clear breath sounds bilaterally, no acute respiratory distress, no wheezes/rales/rhonchi
ABDOMEN: Rotund, soft, nondistended, mild tenderness about a palpably distended bladder, no r/g, no cvat. normoactive BS.
NEUROLOGICAL: Alert and oriented x3, no focal neuro deficits. Gait is candelario and steady.
SKIN: Warm and dry, normal color, skin intact. No rash.
MUSCULOSKELETAL: No C/C/E. peripheral pulses are full and equal b/l. No palpable tenderness.
PSYCH: Normal and appropriate interaction.
Course
Orders/Labs/Results
Orders:
Orders
12/21/23 02:40
Urinalysis Reflex To Culture Urgent
Date Specimen was Collected: 12/21/23
Time Specimen was Collected: 02:40
Urine Microscopic Reflex Cult Urgent
12/21/23 03:03
Thibodeaux [Thibodeaux Placement- Treatment] ONCE
Reason for insertion: Acute Retention
12/21/23 03:18
Tamsulosin [Flomax] 0.4 mg PO NOW STA
Abnormal Lab Results
12/21/23
02:40
Urine Albumin (Reflex) 1+ A
(Neg - Trace)
Vital Signs
Initial and Last Documented VS:
Initial Vital Signs
Temp Pulse Resp BP Pulse Ox
97.9 F 92 18 184/89 99
12/21/23 01:06 12/21/23 01:06 12/21/23 01:06 12/21/23 01:06 12/21/23 01:06
Last Documented Vital Signs
Temp Pulse Resp BP Pulse Ox
97.9 F 87 16 145/72 99
12/21/23 01:06 12/21/23 03:54 12/21/23 03:54 12/21/23 03:54 12/21/23 03:54
MDM/Problems Addressed
Differential Diagnosis Includes:
83-year-old with history of BPH, prior history of urinary retention post moderate sedation for colonoscopy was recently started on diuretic and presents tonight with recurrent urinary retention symptoms.
He has been able to void but postvoid bladder scan reveals over 700 cc in the bladder.
Will plan for Thibodeaux catheter with leg bag and will resume tamsulosin.
Will check urinalysis for completeness sake, assess for potential UTI.
Ultimately patient will require follow-up with urology.
Chronic conditions affecting care: Arrhythmia and Other (BPH with urinary obstruction symptoms)
Acute Exacerbation and/or Progression of Chronic Illness: Other (BPH with urinary obstruction)
*Pulse Oximetry
Patient hypoxic: no
*Critical Care Note
Total Time (30-74mins, 75-104mins- exclusive of procedures): Not Applicable
ED Attending Note
-
Portions of this chart may have been created with voice recognition software.� Occasional wrong word or��sound alike� substitutions may have occurred due to the inherent limitations of voice recognition software.
Discharge Plan
Departure
Patient Disposition: Home (Routine Discharge)
Date of Disposition: 12/21/23
Time of Disposition: 03:25
Patient with high blood pressure during this ER visit?: No
Condition: Good
Discharge Problem:
Acute urinary retention
Instructions: How to Care for Your Thibodeaux Catheter, Male, Urinary Retention (DC)
Prescriptions:
New
tamsulosin 0.4 mg capsule
0.4 mg PO HS Qty: 60 1RF
No Action
benzonatate 200 mg Capsule
200 mg PO BIDPRN PRN (Reason: cough)
omeprazole 20 mg capsule,delayed release(DR/EC)
20 mg PO DAILYPRN PRN (Reason: stomach issues)
tadalafil 10 mg tablet
10 mg PO HS
Eliquis 5 mg Tablet
5 mg PO BID Qty: 60 0RF
metoprolol succinate 25 mg tablet extended release 24 hr
25 mg PO QPM
fluticasone propionate 50 mcg/actuation [place],Suspension
1 spray INTRANASAL DAILY
cholecalciferol (vitamin D3) [Vitamin D3] 125 mcg (5,000 unit) Tablet
125 mcg PO DAILY
tamsulosin 0.4 mg Capsule
0.4 mg PO DAILY 30 Days Qty: 30 0RF
Homocysteine Formula 0.8-50-100 mg-mg-mcg Tablet
2 tab PO DAILY
Probiotic 3 billion cell Capsule
3,000 mmu cells PO DAILY
amlodipine 2.5 mg tablet
50 mg PO DAILY
Referrals:
Hunter Hernandez MD [Active] - Call in 1-3 days for appt
Raheem Lewis MD [Family Provider] -
Interventions
Interventions:
*Risk Screen - Suicide Last Done: 12/21/23 01:06
*General Assessment Last Done: 12/21/23 01:06
*Neglect/Abuse Screening Last Done: 12/21/23 01:06
*Nursing Disposition Last Done: 12/21/23 03:54
ED-Male Genitourinary Assessment Last Done: 12/21/23 02:31
Discharge Date and Time
Discharge Date/Time: 12/21/23 03:55
Print Language: BAR[place]
[2023-12-21] MEDS: FLOMAX 0.4 MG PO (03:29)
[2023-12-21 03:54] VITALS: BP 145/72
== END 2023-12-21 03:55 | disposition home or self-care (01) ==
LOC: EMR 01:05
PROVIDERS: EMERGENCY PHYSICIAN Emergency Medicine; FAMILY PHYSICIAN Family Medicine
DX: N40.1 Benign prostatic hyperplasia with lower urinary tract symptoms (principal); R33.9 Retention of urine, unspecified; I10 Essential (primary) hypertension; I48.91 Unspecified atrial fibrillation
CPT/HCPCS: 99283; 51702; 81003; 81015

== ENCOUNTER → 2023-12-24 09:49 | Outpatient (REF) | payer MEDICARE, OTHER, SELFPAY ==
[2023-12-24 11:00] LABS: % Basophils 0.6 % (0-2); % Eosinophils 3.1 % (0-6); % Immature Granulocytes 0.3 % (0-0.5); % Lymphocytes 33.7 % (20.5-51.1); % Monocytes 8.7 % (1.7-9.3); % Neutrophils 53.6 % (42.2-75.2); Absolute Eosinophils 0.2 10^3/uL (0-0.7); Absolute Lymphocytes 2.3 10^3/uL (1.2-3.4); Absolute Monocytes 0.6 10^3/uL (0.1-0.6); Absolute Neutrophils 3.6 10^3/uL (1.4-6.5); Hematocrit 35.3 % (39.0-52.0); Hemoglobin 11.4 g/dL (13.0-18.0); Mean Corp Hgb Conc. 32.3 g/dL (33.0-37.0); Mean Corpuscular Hgb 26.9 pg (27.0-31.0); Mean Corpuscular Volume 83.3 fL (80.0-94.0); Mean Platelet Volume 10.5 fL (7.4-10.4); Nucleated Red Blood Cells % 0 % (-); Platelet Count 344 10^3/uL (130-400); Red Blood Cell Count 4.24 10^6/uL (4.70-6.10); Red Cell Dist. Width 17.8 % (11.5-14.5); White Blood Cell Count 6.8 10^3/uL (4.8-10.8)
[2023-12-24 11:26] LABS: Blood Urea Nitrogen 18 mg/dl (9-20); Calcium 9.8 mg/dl (8.4-10.2); Carbon Dioxide 25 mmol/L (22-30); Chloride 105 mmol/L (98-107); Glucose 118 mg/dl (70-99); Potassium 4.5 mmol/L (3.5-5.1); Sodium 141 mmol/L (135-145); eGFR > 60.00
== END ==
LOC: REG 09:49
PROVIDERS: ATTENDING PHYSICIAN Nurse Practitioner; FAMILY PHYSICIAN Family Medicine
DX: I48.0 Paroxysmal atrial fibrillation (principal)
CPT/HCPCS: 36415; 80048; 85025

== ENCOUNTER 2024-09-07 08:39 | Emergency (ER) | payer MEDICARE, OTHER, SELFPAY ==
[2024-09-07 08:40] VITALS: BP 195/87
--- NOTE | 2024-09-07 09:51 | ED.GENMED ---
History of Present Illness
General
Chief Complaint: Male Genito-Urinary Symptoms
Source: patient
Time Seen by Provider: 09/07/24 09:45
History of Present Illness
History of Present Illness:
84-year-old male with past medical history of atrial fibrillation, hypertension, BPH presenting to the ER with inability to urinate since 2 AM describing bladder fullness and abdominal distention. Patient has history of similar a year ago requiring
Thibodeaux catheter insertion and outpatient follow-up with urology. He denies any fevers, back or flank pain, nausea or vomiting or any other concerns presently. Patient states his pain is currently tolerable. Bedside bladder scan done by nursing
staff shows greater than 1 L of urine retained within bladder.
Past History
Past History
ED Past Medical History: Arrthythmia, HTN, Other (BPH ), Other (hemorrhoid) and Other (anemia due rectal bleeding in the past and was treated)
ED Past Surgical History: Tonsilectomy and Other (wisdom teeth )
Social History
Tobacco: Non-smoker
Alcohol: Occasional
Drug: None
Personal:
Living: with family
Employment: Retired
Family History
Family History: Other (Noncontributory)
Review of Systems
Review of Systems
All Other Systems: ROS reviewed and negative except as documented in HPI and ROS
Phy Exam
Physical Exam
Physical Exam:
GENERAL: Alert , in no apparent distress
EYE: conjunctiva clear
Head: Normocephalic atraumatic
NECK: Supple,
ENT: mmm.
LUNGS: no acute respiratory distress
GENITOURINARY: Suprapubic fullness and distention with tenderness on palpation, no testicular pain or edema, no urethral discharge
NEUROLOGICAL: Alert and oriented
SKIN: Warm and dry, skin intact.
MUSCULOSKELETAL: well perfused.
PSYCH: Normal and appropriate interaction.
Scores
Heart Failure Risk
Heart Failure Risk Score: Not Applicable
Heart Score for Chest Pain Patients
STEMI patient?: Not applicable
Withdrawal Assessment of Alcohol
Withdrawal Assessment Completed?: Not applicable
Course
Orders/Labs/Results
Orders:
Orders
09/07/24 09:49
Thibodeaux Placement- Treatment ONCE
Reason for insertion: Acute Retention
09/07/24 09:57
Urinalysis Reflex To Culture Urgent
Date Specimen was Collected: 09/07/24
Time Specimen was Collected: 09:57
Urine Microscopic Reflex Cult Urgent
Abnormal Lab Results
09/07/24
09:57
Ur Occult Blood Reflex 3+ A
(Negative)
Urine RBC 3-6 A /HPF
(0-2)
Urine Albumin (Reflex) 2+ A
(Neg - Trace)
Vital Signs
Initial and Last Documented VS:
Initial Vital Signs
Temp Pulse Resp BP Pulse Ox
97.8 F 79 16 195/87 97
09/07/24 08:40 09/07/24 08:40 09/07/24 08:40 09/07/24 08:40 09/07/24 08:40
Last Documented Vital Signs
Temp Pulse Resp BP Pulse Ox
97.8 F 79 16 195/87 97
09/07/24 08:40 09/07/24 08:40 09/07/24 08:40 09/07/24 08:40 09/07/24 09:55
MDM/Problems Addressed
Differential Diagnosis Includes:
- Urinary retention secondary to BPH
- Urinary tract infection
- Renal dysfunction
- Medication side effects
MDM/Problems Addressed:
84-year-old male presenting to the ER for evaluation of inability to urinate since 2 AM. Bedside bladder scan shows greater than 1 L within bladder. Patient initially hesitant to have Thibodeaux catheter so I did offer him straight catheterization but
that patient could potentially start retaining urine again and may need to come back to the emergency department if he is unable to urinate, patient ultimately agreeable to Thibodeaux catheter placement and following up with urology as an outpatient.
Will send urinalysis to ensure no infection. Anticipate discharge home.
*Pulse Oximetry
SaO2: 97
Oxygen Mode of Delivery: Room air
Patient hypoxic: no
*Critical Care Note
Total Time (30-74mins, 75-104mins- exclusive of procedures): Not Applicable
Data Reviewed
Review of Other/Old Records Reveals: Records
Patient Management
Social determinants of health affecting care: Strong social support
Escalation/DeEscalation of care consider admission/obs:
Approximately 1400 mL of clear yellow urine drained. Patient already known to urology here. Advise he contact them today for a follow-up visit later this for Thibdoeaux catheter removal. Patient aware of return precautions. Stable for discharge home.
ED Attending Note
-
Portions of this chart may have been created with voice recognition software.� Occasional wrong word or��sound alike� substitutions may have occurred due to the inherent limitations of voice recognition software.
Discharge Plan
Departure
Patient Disposition: Home (Routine Discharge)
Date of Disposition: 09/07/24
Time of Disposition: 10:26
Patient with high blood pressure during this ER visit?: Yes
Discharge Problem:
Acute urinary retention
Instructions: How to Care for Your Thibodeaux Catheter, Male
Prescriptions:
No Action
benzonatate 200 mg Capsule
200 mg PO BIDPRN PRN (Reason: cough)
omeprazole 20 mg capsule,delayed release(DR/EC)
20 mg PO DAILYPRN PRN (Reason: stomach issues)
tadalafil 10 mg tablet
10 mg PO HS
Eliquis 5 mg Tablet
5 mg PO BID Qty: 60 0RF
metoprolol succinate 25 mg tablet extended release 24 hr
25 mg PO QPM
fluticasone propionate 50 mcg/actuation [place],Suspension
1 spray INTRANASAL DAILY
cholecalciferol (vitamin D3) [Vitamin D3] 125 mcg (5,000 unit) Tablet
125 mcg PO DAILY
tamsulosin 0.4 mg Capsule
0.4 mg PO DAILY 30 Days Qty: 30 0RF
Homocysteine Formula 0.8-50-100 mg-mg-mcg Tablet
2 tab PO DAILY
Probiotic 3 billion cell Capsule
3,000 mmu cells PO DAILY
amlodipine 2.5 mg tablet
50 mg PO DAILY
tamsulosin 0.4 mg capsule
0.4 mg PO HS Qty: 60 1RF
Referrals:
Kiet Dexter MD [Active, Urology]
Raheem Lewis MD [Family Provider, Family Practice]
Interventions
Interventions:
*Risk Screen - Suicide Last Done: 09/07/24 08:43
*General Assessment Last Done: 09/07/24 09:39
*Neglect/Abuse Screening Last Done: 09/07/24 08:43
*ED- Fall Risk Assessment Last Done: 09/07/24 09:39
*Nursing Disposition Last Done: 09/07/24 10:45
ED-Male Genitourinary Assessment Last Done: 09/07/24 09:38
Discharge Date and Time
Discharge Date/Time: 09/07/24 10:45
Print Language: [place]
[2024-09-07 10:14] LABS: Urine Albumin 2+ (Neg - Trace); Urine Bilirubin Negative (Negative); Urine Character Clear (Clear); Urine Color Yellow; Urine Glucose Negative (Negative); Urine Ketone Negative (Negative); Urine Leukocyte Negative (Negative); Urine Nitrite Negative (Negative); Urine Occult Blood 3+ (Negative); Urine Urobilinogen Negative (Neg - 1+)
[2024-09-07 10:27] LABS: Urine Squamous Cell 0-2 /LPF (Few)
[2024-09-07 10:30] LABS: Urine White Cell 0-2 /HPF (0-5)
== END 2024-09-07 10:45 | disposition home or self-care (01) ==
LOC: EMR 08:39
PROVIDERS: Physician Assistant Medical; EMERGENCY PHYSICIAN Student in an Organized Health Care Education/Training Program; FAMILY PHYSICIAN Family Medicine; OTHER PHYSICIAN Specialist
DX: N40.1 Benign prostatic hyperplasia with lower urinary tract symptoms (principal); R33.9 Retention of urine, unspecified; R14.0 Abdominal distension (gaseous); I48.91 Unspecified atrial fibrillation; I10 Essential (primary) hypertension; Z79.01 Long term (current) use of anticoagulants; Z88.5 Allergy status to narcotic agent; Z88.2 Allergy status to sulfonamides
CPT/HCPCS: 99284; 51798; 51702; 81003; 81015